=== PATIENT | female | born 1985 | race Caucasian/White ===

== ENCOUNTER 2017-06-01 09:40 | Inpatient (IN) ==
[2017-06-06] MEDS ORDERED: MAG-AL + SIM ORAL LIQUID 30ml PO PRN (20:40)
[2017-06-06] MEDS ORDERED: CARBOPROST 250 MCG/ML INJECTION IM PRN (20:40)
[2017-06-06] MEDS ORDERED: LR 1,000 ML IV PRN (20:40)
[2017-06-06] MEDS ORDERED: CALCIUM CARBONATE Chewable 500mg TABLET PO PRN (20:40)
[2017-06-06] MEDS ORDERED: METHYLERGONOVINE 0.2 MG/ML INJECTION IM PRN (20:40)
[2017-06-06] MEDS ORDERED: LIDOCAINE 1% (10mg/ml) 2mL INJ PF SDV ID PRN (20:40)
[2017-06-06] MEDS ORDERED: ACETAMINOPHEN 500 MG TABLET PO PRN (20:40)
--- OUTSIDE RECORDS SUMMARY | 2017-06-06 20:41 | External Medical Summary | Continuity of Care Document ---
:1985 Author Organization [facility] Address [address] [place], [place] [id number] Phone Care Team Providers Name Role Phone Yrn Bond MD Unavailable Unavailable Allergies, Adverse Reactions, Alerts Substance Reaction Severity Status amoxicillin Rash Unknown Active Medications Medication Instructions Dosage Effective Dates Status Comments (start - stop) FOLIC ACID - Active (unknown strength) Generic Order - Active (unknown strength) Vitamin take 1 tablet by Not Available - Active tablet oral route every day ANTACID (unknown take 2 tablet by - Active strength) oral route as needed or as directed. Not to exceed 24 tablets in 24hrs Probiotic 10 - Active billion cell capsule Enzymatic - Active Digestant tablet Problems Condition Effective Dates (start - stop) Clinical Status Follow-Up, Routine - Maternal care for oth - abnormality and damage, unsp Encounter for suprvsn of normal - , third trimester 36 weeks gestation of - Encounter for suprvsn of normal - , first trimester 10 weeks gestation of - Encounter for suprvsn of normal - , second trimester 14 weeks gestation of - Encounter for suprvsn of normal - , second trimester 20 weeks gestation of - Maternal care for oth - abnormality and damage, unsp Abnormal glucose complicating - Encounter for suprvsn of normal - , third trimester 38 weeks gestation of - Maternal care for oth - abnormality and damage, unsp Abnormal glucose complicating - 36 weeks gestation of - Abnormal glucose complicating - Abnormal glucose complicating - Encounter for suprvsn of normal - , third trimester 33 weeks gestation of - Encounter for suprvsn of normal - , second trimester 27 weeks gestation of - Encounter for suprvsn of normal - , second trimester 20 weeks gestation of - Encounter for suprvsn of normal - , second trimester 24 weeks gestation of - Encounter for suprvsn of normal - , third trimester 31 weeks gestation of - Encounter for suprvsn of normal - , third trimester 37 weeks gestation of - Active Procedures Procedure Date OB Visit No Charge - FACILITY OPERATIONS MANAGER Cult, pathgnc orgnsm, screen Results Test Name Date and Time Measure Units Reference Range Abnormal Flag Comments Panel Description: CULTURE, GROUP B STREP WITH SUSCEPTIBILITY CULTURE, GROUP B SEE NOTE CULTURE, GROUP B STREP WITH STREP WITH 09:54:00 SUSCEPTIBILITY MICRO NUMBER: SUSCEPTIBILITY [id number] TEST STATUS: FINAL SPECIMEN SOURCE: VAGINAL/ANORECTAL SPECIMEN QUALITY: ADEQUATE RESULT: No group B Streptococcus isolatedREPORT COMMENT:FASTING:UNKNOWNTest performed at [facility] [id number] [place] [address]Qdltgolb: ERMA MEJIA DO,MPH Advance Directives Directive Yes / No Effective Date File Name Unknown Encounters Encounter Practice Location Reason(s) Diagnoses Date Provider Care Team Description For Visit [facility] Maternal care for Vazquez Referring In Womens oth 9201 Elizabeth. Provider: Health PA, abnormality and 8 [address] damage, Medical Varun B, 1522, unspAbnormal Center [address], glucose Dr, [facility], complicating 120, Center, [id number], pregnancyEncounte [place]her [place], [place], [address]. tel: normal , [phone] tel: third [id number] , [place]. [id number] weeks gestation tel: of [phone] Katelin Obando Encounter for Fabian-2 Vazquez Referring In Womens suprvsn of normal 2-201 Elizabeth. Provider: Health MARGAUX, , third 8 700 Yrn [address] [id number] weeks [facility], 1522, gestation of [place] [address], , [facility], 120, Center, [id number], [place], [place], [address]. tel: tel: , [place]. [phone] tel: [phone] Katelin Obando Maternal care for Fabian-1 Vazquez Referring In Womens oth 5-201 Elizabeth. Provider: Roel DAMICO, abnormality and 8 [address] damage, [facility], 1522, unspEncounter for Center [address], [facility] normal , [facility], , third 120, Center, [id number], [id number] weeks [place], [place], [address]. tel: [phone] tel: , [place]. [id number] tel: [phone] Katelin Obando Maternal care for Fabian-1 Vazquez Referring In Womens Ultrasound oth 5-201 Elizabeth. Provider: Roel DAMICO, abnormality and 8 700 Yrn [address] damage, [facility], 1522, unspAbnormal Center [address] [place] [address], glucose , [facility], complicating 120, Center, [id number], [id number] weeks [place], [place], [address]. tel: [phone] tel: , [place]. 5359494 tel: [phone] Katelin Obando Abnormal glucose Dec-2 Vazquez Referring In Womens complicating 7-201 Elizabeth. Provider: Roel DAMICO, pregnancyEncounte 7 [address] r for suprvsn of [facility], 1522, normal , Center [address], third [email or web address] , [facility], weeks gestation 120, Center, [id number], of Topher [place], [place], [address]. tel:[phone] tel: , . 7857944 tel: [phone] Katelin Obando Encounter for Dec-1 Vazquez Referring In Womens suprvsn of normal 2-201 Elizabeth. Provider: Health MARGAUX, , third 7 700 Yrn [address] [email or web address] weeks [facility], 1522, gestation of Center [address] [place] [address], , [facility], 120, Center, , Topher [place], [place], [address]. tel:[phone] tel: , . [id number] tel: [phone] Katelin Obando Abnormal glucose Nov-2 Vazquez Referring In Womens complicating 2-201 Elizabeth. Provider: Health [place], 7 700 Yrn PO Box [facility], 1522, Center [facility] [place], Dr [facility], 120, Center, , Topher [place], [place], [address]. tel: tel: , . [phone] tel: [phone] Katelin Obando Encounter for Nov-1 Vazquez Referring In Womens suprvsn of normal 7-201 Elizabeth. Provider: Health MARGAUX, , second 7 700 Yrn [address] [email or web address] weeks [facility], 1522, gestation of Center [address] [place] [address], Dr [facility], 120, Center, [id number], Topher [place], [place], [address]. tel:[phone] tel: , [place]. [id number] tel: [phone] Katelin Obando Encounter for Oct-2 Vazquez Referring In Womens suprvsn of normal 4-201 Elizabeth. Provider: Health MARGAUX, , second 7 700 Yrn [address] [email or web address] weeks Medical [facility], 1522, gestation of Center [address] [place] [address], Dr [facility], 120, Center, , [place]her [place], [place], [address]. tel:[phone] tel: , . 0854462 tel: [phone] Katelin Obando Encounter for Sep-2 Vazquez Referring In Womens suprvsn of normal 5-201 Elizabeth. Provider: Health MARGAUX, , second 7 700 Yrn [address] Box [email or web address] weeks Medical [facility], 1522, gestation of Center [address], , [facility], 120, [place], [id number], Topher [place], [place], [address]. tel:[phone] tel: , . [phone] tel: [phone] Ktaelin Obando Encounter for Sep-2 Vazquez Referring In Womens Ultrasound suprvsn of normal 5-201 Elizabeth. Provider: Roel DAMICO, , second 7 700 Yrn [address] [email or web address] weeks Medical [facility], 1522, gestation of Center [address] [place] [address], , [facility], 120, [place], , oTpher [place], [place], [address]. tel:[phone] tel: , [place]. 6785493 tel: [phone] Katelin Obando Encounter for Aug-1 Vazquez Referring In Womens suprvsn of normal 6-201 Elizabeth. Provider: Roel DAMICO, , second 7 700 Yrn [address] Box [id number] weeks Medical [facility], 1522, gestation of Center [address] [place] [address], , [facility], 120, [place], , Topher [place], [place], [address]. tel:[phone] tel: , US. 1487875 tel: [phone] Katelin Obando Encounter for Rosales-1 Vazquez Referring In Womens suprvsn of normal 9-201 Elizabeth. Provider: Roel DAMICO, , first 7 700 Yrn [address] [email or web address] weeks Medical Varun B, 1522, gestation of Center [address], , [facility], 120, [place], , Topher [place], [place], [address]. tel:[phone] tel: , . 8450028 tel: [phone] [facility] Jan-2 Vazquez Referring In Womens Follow-Up, 7- Elizabeth. Provider: Health MARGAUX, Routine 5 700 Yrn [facility] Medical Varun B, 1522, Center [address] [place], [facility] [place], 120, [place], [id number], [place], [place], [address]. tel: [phone] tel: , . 9887706 tel: [phone] Katelin Obando Nov- Vazquez Referring In Womens 2-201 Elizabeth. Provider: Health MARGAUX, 5 700 Elizabeth PO Box Medical Vazquez L, 1522, Center [address] [place], [facility], 120, [place] [id number], [place] [address], [place], [place], tel: [phone] [place], , . [id number]. tel: tel: [phone] [facility] Oct-2 Vzaquez In Womens 9-201 Elizabeth. Health MARGAUX, 5 700 [facility] Medical 1522, [place] Dr [place], [facility], 120, [id number], [facility], tel:[phone] , . tel: [phone] Associates [facility] In Womens 1-201 [place]. Health MARGAUX, 3 700 [facility] 1522, [place] Dr [place], [facility], 120, [id number], [place], [place], tel:[phone] , [place]. tel: [phone] Family History Family Member Diagnosis Age At Onset No family history of Osteoporosis No family history of Breast Cancer Maternal Grandfather Cardiovascular Disease No family history of Lung Disease No family history of Kidney Problems No family history of Epilepsy Paternal Grandfather Stroke No family history of Hypertension Paternal Grandmother Cancer, lung No family history of Ovarian Cancer No family history of Uterine Cancer No family history of Colon Cancer No family history of Diabetes No family history of Thyroid Disorder Immunizations Vaccine Date Status Comments Tdap completed Source: School Record Tdap completed Source: New Immunization Record Payers Payer name Insurance type Covered democrat ID Authorization(s) [facility] [id number] [facility] [place] [id number] [facility] [place] [id number] Social History Type Description Quantity Date Captured Alcohol Use Details No Caffeine Use Details Unknown Tobacco Use Status Unknown Smoking Status Never smoker Vital Signs Date / Height Weight BMI Pulse Blood Temperature Respiratory Body Head BMI Time: Rate Pressure Rate Surface Circumference percentile Area 157.90 29.8 107/2018 lbs 3 mm[Hg] 9:17 kg/m AM eter (2) Chief Complaint And Reason For Visit Unknown Chief Complaint And Reason For Visit Reason For Referral Reason For Referral Unknown Plan Of Care Date Type Action Status Appointment Jojo Loza BOOKED Appointment Jojo Loza BOOKED Future Order: Radiology Order Ultrasound OB Follow-up (93069) Ordered Future Order: Radiology Order Complete OB Ultrasound > 14 Ordered Weeks (08508) Date Type Problem Goal Intervention Status Start Date Unknown. History Of Present Illness Encounter Date Complaint History Of Present Illness This patient has no known history of present illness Functional Status Encounter Date Functional Assessment Cognitive Assessment Unknown Medications Administered Medication Instructions Dosage Effective Dates (start - stop) Status Comments Drug Treatment Unknown Instructions Date Instruction Additional Information HIV and other routine tests risk factors identified by history anticipated course of care nutrition and weight gain counseling, special diet toxoplasmosis precautions (cats / raw meat) sexual activity exercise indications for ultrasound influenza vaccine environmental / work hazards travel use of any medications (including supplements, vitamins, herbs, OTC drugs) domestic violence seat belt use childbirth classes / hospital facilities hospital registration genetic testing new ob handbook Zika virus assessment & precautions
--- OUTSIDE RECORDS SUMMARY | 2017-06-06 20:41 | External Medical Summary | Continuity of Care Document ---
:1986 Author Organization [facility] Address [address] [place], [place] [id number] Phone Care Team Providers Name Role Phone [...] Probiotic 10 - Active billion cell capsule Problems Condition Effective Dates (start - stop) Clinical Status Follow-Up, Routine - Encounter for suprvsn of normal - , second trimester 14 weeks gestation of - Encounter for suprvsn of normal - , first trimester 10 weeks gestation of - Active Procedures Procedure Date OB Visit No Charge Results Test Name Date and Time Measure Units Reference Range Abnormal Flag Comments Unknown Advance Directives Directive Yes / No Effective Date File Name Unknown Encounters Encounter Practice Location Reason(s) Diagnoses Date Provider Care Team Description For Visit [facility] Encounter Vazquez Referring In [facility] for suprvsn -2016 Elizabeth. Provider: Roel DAMICO, of normal [address], , Medical [place], [facility] Center Vidhya Mcne[facility] Medical [id number], [id number] Price 120, Center, [place] weeks [place], tel:[phone] [place], [address]. [id number], tel:+316 [place]. 977046 tel:[phone] Katelin Obando Encounter Vazquez Referring In Womens for suprvsn -2016 Elizabeth. Provider: Roel DAMICO, of normal [address], , [place], first Center , 720 Medical [id number], [email or web address] Price 120, Center, weeks [place], tel:[phone] [place], [address]. [id number], tel:+316 [place]. [address] tel:[phone] Katelin Obando Vazquez Referring In Womens Follow-Up, -2014 Elizabeth. Provider: Roel DAMICO, Routine [address], [place], [place] , 720 [facility] [id number], Price 120, Center, [place], tel:[phone] [place], [address]. [id number], tel:+[phone] . [phone] tel:[phone] Katelin Obando Vazquez Referring In Womens -2014 Elizabeth. Provider: Roel DAMICO, 700 Elizabeth [address], Medical Vaz[place], [place], [place] , [address] [place] [id number], Price [address], [address] Dr [place], Price 120, tel:[phone] [place], [id number], [id number]. [place]. tel: tel:[phone] Katelin Obando Vazquez In Womens -2014 Elizabeth. Health MARGAUX, 700 [address], [place], [place], [place] , [id number], Price 120, [place], tel:[phone] [place], [id number], [place]. tel:[phone] Katelin Allen In Womens -2012 [place]. Health AMRGAUX, 700 [address], Medical [place], [place], [place] , [id number], [address], [place], tel:[phone] [place], [id number], [place]. tel:[phone] Family History Family Member Diagnosis Age At [...] Vaccine Date Status Comments Tdap completed Source: New Immunization Record Payers Payer name Insurance type Covered democrat ID Authorization(s) [facility] [id number] [facility] [id number] [facility] [id number] Social History Type Description Quantity Date Captured Alcohol Use Details No Caffeine Use Details Unknown Tobacco Use Status Unknown Smoking Status Never smoker Vital Signs Date / Height Weight BMI Pulse Blood Temperature Respiratory Body Head BMI Time: Rate Pressure Rate Surface Circumference percentile Area Unknown Chief Complaint And Reason For Visit Unknown Chief Complaint And Reason For Visit Reason For Referral Reason For Referral Unknown Plan Of Care Date Type Action Status Appointment Jojo Loza BOOKED Appointment Jojo Loza BOOKED Date Type Problem Goal Intervention Status Start [...]
--- OUTSIDE RECORDS SUMMARY | 2017-06-06 20:41 | External Medical Summary | Continuity of Care Document ---
:1986 Author Organization [facility] Address [address] [place], [place] [phone] Phone Care Team Providers Name Role Phone Yrn Bond MD Unavailable Unavailable Allergies, Adverse Reactions, Alerts Substance Reaction Severity Status amoxicillin Rash Unknown Active Medications Medication Instructions Dosage Effective Dates Status Comments (start - stop) Generic Order - Active (unknown strength) Probiotic 10 - Active billion cell capsule Vitamin take 1 tablet by Not Available - Active tablet oral route every day ANTACID (unknown take 2 tablet by - Active strength) oral route as needed or as directed. Not to exceed 24 tablets in 24hrs Problems Condition Effective Dates (start - stop) Clinical Status Follow-Up, Routine - Encounter for suprvsn of normal - , first trimester 10 weeks gestation of - Active Procedures Procedure Date Initial OB Visit No Charge - FORMING TUBE SELECTOR Infct antign, chlamydia trac, ampl Neisseria Gonorrhoeae, Amplification Urine Culture OB Panel With An HIV Venpnctr fngr/heel/ear stick routne Cult, bactr, ident isolate, urine Results Test Name Date and Time Measure Units Reference Range Abnormal Flag Comments Panel Description: OBSTETRIC PANEL WHITE BLOOD CELL 7.2 Thousand/uL 3.8-10.8 N COUNT 14:03:00 RED BLOOD CELL 3.76 Million/uL 3.80-5.10 L COUNT 14:03:00 HEMOGLOBIN 12.2 g/dL 11.7-15.5 N 14:03:00 HEMATOCRIT 34.9 % 35.0-45.0 L 14:03:00 MCV 92.8 fL 80.0-100.0 N 14:03:00 MCH 32.4 pg 27.0-33.0 N 14:03:00 MCHC 35.0 g/dL 32.0-36.0 N 14:03:00 RDW 12.0 % 11.0-15.0 N 14:03:00 PLATELET COUNT 213 Thousand/uL 140-400 N 14:03:00 MPV 10.2 fL 7.5-12.5 N 14:03:00 ABSOLUTE 4745 cells/uL 3545-6355 N NEUTROPHILS 14:03:00 ABSOLUTE 1764 cells/uL 850-3900 N LYMPHOCYTES 14:03:00 ABSOLUTE 511 cells/uL 200-950 N MONOCYTES 14:03:00 ABSOLUTE 151 cells/uL 15-500 N EOSINOPHILS 14:03:00 ABSOLUTE 29 cells/uL 0-200 N BASOPHILS 14:03:00 NEUTROPHILS 65.9 % N 14:03:00 LYMPHOCYTES 24.5 % N 14:03:00 MONOCYTES 7.1 % N 14:03:00 EOSINOPHILS 2.1 % N 14:03:00 BASOPHILS 0.4 % N 14:03:00 ANTIBODY SCREEN, NO ANTIBODIES N RBC W/REFL ID, 14:03:00 DETECTED Reference range TITER AND AG No antibodies detected This assay is a screening test for the detection of red blood cell antibodies. The test is not to be used for pretransfusion screening or for the medical management of an alloimmunized . ABO GROUP B 14:03:00 RH TYPE RH(D) 14:03:00 POSITIVE RPR (DX) W/REFL NON-REACTIVE NON-REACTIV N TITER AND 14:03:00 E CONFIRMATORY TESTING HEPATITIS B NON-REACTIVE NON-REACTIV N SURFACE ANTIGEN 14:03:00 E RUBELLA ANTIBODY 1.00 index N Index (IGG) 14:03:00 Interpretation ----- <0.90 Not consistent with Immunity 0.90-0.99 Equivocal > or=1.00 Consistent with Immunity The presence of rubella IgG antibody suggests immunization or past or current infection withrubella virus.Test performed at Before the [facility] [place] [address]Ygsbisw r: ERMA MEJIA DO,MPH Panel Description: HIV 1/2 ANTIGEN/ANTIBODY,FOURTH GENERATION W/RFL HIV NON-REACTIVE NON-REACTIVE N HIV-1 antigen and HIV-1/HIV- 2 antibodies were AG/AB, 14:03:00 notdetected. There is no laboratory evidence of 4TH GEN HIVinfection. PLEASE NOTE: This information has been disclosed toyou from records whose confidentiality may beprotected by state law. If your state requires suchprotection, then the state law prohibits you frommaking any further disclosure of the informationwithout the specific written consent of the personto whom it pertains, or as otherwise permitted by law.A general authorization for the release of medical orother information is NOT sufficient for this purpose. For additional information please refer tohttp://education.[employer]/faq/OVT798(This link is being provided for informational/educational purposes only.) The performance of this assay has not been clinicallyvalidated in patients less than 2 years old. Test performed at [facility] [place] [address]Lhgntmii: ERMA MEJIA DO,MPH Panel Description: Bacteria identified in Urine by Culture CULTURE, URINE, 14:01:00 SEE NOTE CULTURE, URINE, ROUTINE ROUTINE MICRO NUMBER: [id number] TEST STATUS: FINAL SPECIMEN SOURCE: URINE, CLEAN CATCH SPECIMEN QUALITY: ADEQUATE RESULT: Multiple organisms present, each less than 10,000 CFU/mL. These organisms, commonly found on external and internal genitalia, are considered to be colonizers. No further testing performed.REPORT COMMENT:RTest performed at Before the Call [facility] [place] [address]Pnvwwdre: ERMA MEJIA DO,MPH Panel Description: CHLAMYDIA/N. GONORRHOEAE RNA, TMA CHLAMYDIA NOT DETECTED NOT DETECTED N TRACHOMATIS RNA, 14:07:00 TMA NEISSERIA NOT DETECTED NOT DETECTED N GONORRHOEAE RNA, 14:07:00 TMA [id number] SEE NOTE This test was 14:07:00 performed using the APTIMA COMBO2 Assay([employer] The analytical performance characteristics of this assay, when used to test SurePath specimens havebeen determined by [employer]. Test performed at [facility] [id number] [place] [address]Svsehblf: ERMA MEJIA DO,MPH Panel Description: Pap Smear With HPV Reflex If ASCUS Document Advance Directives Directive Yes / No Effective Date File Name Unknown Encounters Encounter Practice Location Reason(s) Diagnoses Date Provider Care Team Description For Visit Members Katelin Obando Encounter Vazquez Referring In Womens for suprvsn -2016 Elizabeth. Provider: Roel DAMICO, of normal [address], , Medical Varun [place], [place], first Center , [address] [place] [id number], [address], [place], weeks [place], tel:[phone] [place], [address]. [id number], tel:+[phone] . 362028 tel:[phone] Katelin Obando Vazquez Referring In Womens Follow-Up, -2014 Elizabeth. Provider: Roel DAMICO, Routine [address], Medical Varun [place], [place], [place] , [address] [id number], [address], Center, [place], tel:[phone] [place], [address]. [id number], tel:[phone] . 394143 tel:[phone] Katelin Obando Vazquez Referring In Womens -2014 Elizabeth. Provider: Roel DAMICO, 700 Elizabeth [address], Medical [place], [place] , 700 Medical [id number], [address], Center [place] [address] 120, tel:[phone] [place], [place], [id number], [id number]. [place]. tel: tel:[phone] Associates [place] Vazquez In Womens Elizabeth. [facility], 700 [address], [place], [place], [place] , [id number], [address], [place], tel:+[phone] [place], [id number], [place]. tel:[phone] Associates [facility] [place]. [facility], [address], [place], [place], [place] , [id number], [address], [place], tel:[phone] [place], [id number], [place]. tel:[phone] Family History Family Member Diagnosis Age At [...] Record Payers Payer name Insurance type Covered constitution party ID Authorization(s) [facility] [id number] [facility] [id number] [facility] [id number] Social History Type Description Quantity Date Captured Alcohol Use Details No Caffeine Use Details chocolate daily per day Tobacco Use Status Never smoked tobacco Smoking Status Never smoker Non-Smoking Tobacco Use : No Details Available : No Details Available Details Vital Signs Date / Height Weight BMI Pulse Blood Temperature Respiratory Body Head BMI Time: Rate Pressure Rate Surface Circumference percentile Area 132.90 25.1 lbs 1 mm[Hg] 1:19 kg/m PM eter (2) 132.90 26.4 lbs 1 mm[Hg] 1:19 kg/m PM eter (2) Chief Complaint And Reason For Visit Unknown Chief Complaint And Reason For Visit Reason For Referral Reason For Referral Unknown Plan Of Care Date Type Action Status Appointment Jojo Loza BOOKED Date Type Problem [...]
--- OUTSIDE RECORDS SUMMARY | 2017-06-06 20:41 | External Medical Summary | Continuity of Care Document ---
:1985 Author Organization [facility] Address [address] [place], [place] [id number] Phone Care Team Providers Name Role Phone [...] third trimester 37 weeks gestation of - Encounter for suprvsn [...] suprvsn of normal - , third trimester 39 weeks gestation of - Maternal care for oth - abnormality and damage, unsp Abnormal glucose complicating - Encounter for suprvsn of normal - , third trimester 38 weeks gestation of - Maternal care for oth - abnormality and damage, unsp Encounter for suprvsn of normal - , third trimester 36 weeks gestation of - Maternal care for [...] third trimester 31 weeks gestation of - Active Procedures Procedure Date OB Visit No 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 Provider: Health PA, abnormality and 8 700 Yrn [address] damage, Medical [facility], 1522, unspAbnormal Center [address] [place], glucose , [facility], complicating 120, Center, [id number], pregnancyEncounte Topher [place], [place], [address]. tel:+ normal , [phone] tel:+ [phone] third [id number] , [place]. [id number] weeks gestation tel: of [phone] Katelin [place]o Maternal care for Vazquez Referring In Womens oth 9-201 Elizabeth. Provider: Roel DAMICO, abnormality and 8 700 Yrn [address] Box damage, Medical Varun B, 1522, unspAbnormal Center [address] [place], glucose Dr [facility], complicating 120, Center, [id number], pregnancyEncounte Topher [place], [place], [address]. tel: normal , [phone] tel: third [email or web address] , [place]. [id number] weeks gestation tel: of [phone] Katelin [place] Encounter for Apr- Vazquez Referring In Womens suprvsn of normal 2-201 Elizabeth. Provider: Roel DAMICO, , third 8 700 Yrn [address] Box [email or web address] weeks Medical Varun B, 1522, gestation of Center [address] [place], , [facility], 120, Center, [id number], [place], [place], [address]. tel: tel: , [place]. [id number] tel: [phone] Katelin [place]o Maternal care for Apr- Vazquez Referring In Womens ot 5-201 Elizabeth. Provider: Roel DAMICO, abnormality and 8 700 Yrn [address] Box damage, Medical Varun B, 1522, unspEncounter for Center [address] [place], suprvsn of normal Dr [facility], , third 120, Center, [id number], [email or web address] weeks Topher [facility] [place], [address]. tel: [phone] tel: , [place]. [id number] tel: [phone] Katelin [place]o Maternal care for Apr- Vazquez Referring In Womens Ultrasound oth 5-201 Elizabeth. Provider: Roel DAMICO, abnormality and 8 700 Yrn PO Box damage, Medical Varun B, 1522, unspAbnormal Center [address] [place], glucose Dr [facility], complicating 120, Center, [id number], [email or web address] weeks [place], [place], [address]. tel: [phone] tel: , [place]. [id number] tel: [phone] Katelin [place]o Abnormal glucose Dec-2 Vazquez Referring In Womens complicating 7-201 Elizabeth. Provider: Roel DAMICO, pregnancyEncounte 7 700 Yrn PO Box r for suprvsn of [facility], 1522, normal , Center [address] [place] [address], third , [facility], weeks gestation 120, Center, [id number], of Topher [place], [place], [address]. tel:[phone] tel: , [place]. [id number] tel: [phone] Katelin [place]o Encounter for Dec-1 Vazquez Referring In Womens suprvsn of normal 2-201 Elizabeth. Provider: Roel DAMICO, , third 7 700 Yrn PO Box [email or web address] weeks [facility], 1522, gestation of Center [address] [place] [address], , [facility], 120, Center, [id number], Topher [place], [place], [address]. tel:[phone] tel: , [place]. [id number] tel: [phone] Katelin [place]o Abnormal glucose Nov-2 Vazquez Referring In Womens complicating 2-201 Elizabeth. Provider: Roel DAMICO, 7 700 Yrn PO Box [facility], 1522, Center [address] [place], Dr [facility], 120, Center, [id number], Topher [place], [place], [address]. tel:[phone] tel: , [place]. [id number] tel: [phone] Katelin [place]bando Encounter for Nov-1 Vazquez Referring In Womens suprvsn of normal 7-201 Elizabeth. Provider: Roel DAMICO, , second 7 700 Yrn PO Box [email or web address] weeks [facility], 1522, gestation of Center [address] [place] [address], Dr [facility], 120, Center, [id number], Topher [place], [place], [address]. tel:[phone] tel: , . [id number] tel: [phone] Katelin [place]o Encounter for Oct-2 Vazquez Referring In Womens suprvsn of normal 4-201 Elizabeth. Provider: Health PA, , second 7 700 Yrn [address] Box [email or web address] weeks Medical [facility], 1522, gestation of Center [address] [place], , [facility], 120, Center, [id number], Topher [place], [place], [address]. tel:[phone] tel:+ , [place]. [id number] tel: [phone] Katelin [place]o Encounter for Sep-2 Vazquez Referring In Womens suprvsn of normal 5-201 Elizabeth. Provider: Health MARGAUX, , second 7 700 Yrn PO Box [email or web address] weeks Medical [facility], 1522, gestation of Center [address] [place] [address], , [facility], 120, [place], , Topher [place], [place], [address]. tel:[phone] tel: , [place]. [id number] tel: [phone] Katelin [place]o Encounter for Sep-2 Vazquez Referring In Womens Ultrasound suprvsn of normal 5-201 Elizabeth. Provider: Roel DAMICO, , second 7 700 Yrn PO Box [email or web address] weeks Medical [facility], 1522, gestation of Center [address] [place] [address], , [facility], 120, [place], , Topher [place], [place], [address]. tel:[phone] tel: , [place]. [id number] tel: [phone] Katelin [place]o Encounter for Aug-1 Vazquez Referring In Womens suprvsn of normal 6-201 Elizabeth. Provider: Health MARGAUX, , second 7 700 Yrn PO Box [email or web address] weeks Medical [facility], 1522, gestation of Center [address] [place] [address], , [facility], 120, Center, , Topher [place], [place], [address]. tel:[phone] tel: , . [id number] tel: [phone] Katelin Obando Encounter for Rosales-1 Vazquez Referring In Womens suprvsn of normal 9-201 Elizabeth. Provider: Roel DAMICO, , first 7 700 Yrn Kelley [email or web address] weeks Medical [facility], 1522, gestation of Center [facility] [place], , [facility], 120, Center, [id number], [place], [place], [address]. tel: [phone] tel: , [place]. 9010194 tel: [phone] Katelin Obando Jan-2 Vazquez Referring In Womens Follow-Up, 7 Elizabeth. Provider: Roel DAMICO, Routine 5 700 Yrn Kelley [facility], 1522, Center [facility] Dr [place], [facility], 120, [place], [id number], Topher [place], [place], [address]. tel:[phone] tel: , [place]. 9016541 tel: [phone] Katelin Obando Nov- Vazquez Referring In Womens 2-201 Elizabeth. Provider: Roel DAMICO, 5 700 Elizabeth INOCENCIA Box Medical [facility], 1522, Center [facility] Dr [place], [facility], 120, [place] [id number], [place] [address], [facility], [place], tel:[phone] [place], , [place]. [id number]. tel: tel: [phone] Katelin Obando Oct-2 Vazquez In Womens 9- Elizabeth. Roel DAMICO, 5 700 [facility] 1522, [place] Dr [place], [facility] [place], 120, [id number], [place], [place], tel:[phone] , [place]. tel: [phone] Associates May- Alejandro In Womens 1-201 [place]. Roel DAMICO, 3 700 [facility] 1522, [place] Dr [place], [facility] [place], 120, [id number], [facility] [place], tel:[phone] , [place]. tel: [phone] Family History Family Member Diagnosis Age At [...] Record Payers Payer name Insurance type Covered green party ID Authorization(s) [facility] [id number] [facility] [id number] [facility] [id number] Social History Type Description Quantity Date Captured Alcohol Use Details No Caffeine Use Details chocolate daily per day Tobacco Use Status Never smoked tobacco Smoking Status Never smoker Vital Signs Date / Height Weight BMI Pulse Blood Temperature Respiratory Body Head BMI Time: Rate Pressure Rate Surface Circumference percentile Area Unknown Chief Complaint And Reason For Visit Unknown Chief Complaint And Reason For Visit Reason For Referral Reason For Referral Unknown Plan Of Care Date Type Action Status Future Order: Radiology Order Ultrasound OB Follow-up ([id number]) Ordered Future Order: Radiology Order Complete OB Ultrasound > 14 Ordered Weeks ([id number]) Date Type Problem Goal Intervention Status Start [...]
--- OUTSIDE RECORDS SUMMARY | 2017-06-06 20:41 | External Medical Summary | Continuity of Care Document ---
:1985 Author Organization [facility] Address [address] [place], [place] [phone] Phone Care Team Providers Name Role Phone [...] second trimester 20 weeks gestation of - Abnormal glucose complicating - Encounter for suprvsn of normal - , second trimester 20 weeks gestation of - Encounter for suprvsn of normal - , second trimester 24 weeks gestation of - Active Procedures Procedure Date OB Visit No Charge Glucose test Hemoglobin count, colorimetric Hematocrit blood count Venpnctr fngr/heel/ear stick routne Results Test Name Date and Time Measure Units Reference Range Abnormal Flag Comments Panel Description: Glucose [Mass/volume] in Serum or Plasma --1 hour post 50 g glucose PO GLUCOSE, 143 mg/dL <140 H One hour value of > GESTATIONAL SCREEN 15:11:00 pw=893 mg/dL indicatesthe (50G)-140 CUTOFF need for a diagnostic 75 g dose 2-hour or100 g dose 3-hour oral glucose tolerance test;patient fasting is required.[place] [address]Director: ERMA MEJIA DO,MPH Panel Description: HEMOGLOBIN + HEMATOCRIT HEMOGLOBIN 15:11:00 11.0 g/dL 11.7-15.5 L HEMATOCRIT 15:11:00 31.5 % 35.0-45.0 L REPORT COMMENT:FASTING :NOTest performed at [facility] [address] [id number]: ERMA MEJIA DO,MPH Advance Directives Directive Yes / No Effective Date File Name Unknown Encounters Encounter Practice Location Reason(s) Diagnoses Date Provider Care Team Description For Visit Members Katelin [place]o Abnormal Nov-2 Vazquez Referring In Women glucose 2-201 Elizabeth. Provider: Roel DAMICO, complicating 7 [address], [facility] [place] [place], [place] [address] [id number], [facility] [place] 120, Center, tel:[phone] Topher [place], [address] [place] [address], [address]. [id number] tel: , [place]. [id number] tel: [phone] Katelin [place]o Encounter for Feb- Vazquez Referring In Womens suprvsn of 7-201 Elizabeth. Provider: Health PA, normal 7 [address], , Medical Varun [place], [place], [facility] Center 720 [id number], [email or web address] Dr [facility] weeks 120, [place], tel:+21 gestation of Topher [place], [address] [place], [address]. [id number] tel: , [place]. 0284657 tel: [phone] Katelin [place]o Encounter for Oct-2 Vazquez Referring In Womens suprvsn of Elizabeth. Provider: Roel DAMICO normal 7 [address], , Medical [facility], [place], [place], second Center 720 [id number], [facility] [place] weeks 120, Center, tel:+ gestation of Topher [place], [address] [place], [address]. [id number] tel:+ , [place]. [id number] tel: [phone] Katelin Obando Encounter for Sep-2 Vazquez Referring In Womens suprvsn of - Elizabeth. Provider: Roel DAMICO normal 7 [address], , Medical [facility], [place], [place], second Center 720 [id number], [email or web address] [facility] [place] weeks 120, Center, tel:+ gestation of Topher [place], [address] [place], [address]. [id number] tel:+ , [place]. [id number] tel: [phone] Katelin [place]o Encounter for Sep-2 Vazquez Referring In Womens Ultrasound suprvsn of - Elizabeth. Provider: Roel DAMICO normal 7 [address], , Medical [facility], [place], [place], second Center 720 [id number], [email or web address] [facility] [place] weeks 120, Center, tel:+ gestation of Topher [place], [address] [place], [address]. [id number] tel:+ , [place]. [id number] tel: [phone] Katelin O[place]o Encounter for Aug-1 Vazquez Referring In Womens suprvsn of 6- Elizabeth. Provider: Roel DAMICO normal 7 [address], , Medical [facility], [place], [place], second Center 720 [id number], [email or web address] [facility] [place] weeks 120, Center, tel:+ gestation of Topher [place], [address] [place], [address]. [id number] tel: , US. [id number] tel: [phone] Katelin Obando Encounter for Oct-1 Vazquez Referring In Womens suprvsn of - Elizabeth. Provider: Roel DAMICO, normal 7 [address], , Medical Varun , [place], [place], first Center 720 [id number], [email or web address] , [facility] weeks 120, Center, tel:21 gestation of Topher [place], [address] [place], [address]. [id number] tel: , [place]. [id number] tel: [phone] Katelin Obando Oct-2 Vazquez Referring In Womens Follow-Up, Elizabeth. Provider: Health MARGAUX, Routine 5 [address], Medical Varun , [place], [place], Center [address] [id number], Dr [facility] 120, Center, tel: Topher [place], [address] [place], [address]. [id number] tel: , [place]. [id number] tel: [phone] Katelin Obando Aug-1 Vazquez Referring In Womens 2-201 Elizabeth. Provider: Roel DAMICO, 5 700 Elizabeth [address], Medical Vazquez L [place], Center 700 [id number], Dr [facility] 120, [place] tel: [place]her [place] [address], [address] Topher [place], [id number] [place], , [place]. [id number]. tel: tel: [phone] Katelin [place]bando Oct-2 Vazquez In Womens 9- Elizabeth. Health MARGAUX, 5 700 [address], [place], [place], [place] [id number], Dr [facility] 120, tel: Topher [address] [place] [address], [id number] , [place]. tel: [phone] Katelin May- Alejandro In Womens -201 [place]. Health MARGAUX, 3 700 [address], [place], Center [id number], , [facility] 120, tel:[phone] [facility]her[facility] license of [facility] [place], [id number] , [place]. tel: [phone] Family History Family Member Diagnosis Age At [...] Record Payers Payer name Insurance type Covered libertarian ID Authorization(s) [facility] [id number] [facility] [id number] [facility] [id number] Social History Type Description Quantity Date Captured Alcohol Use Details No Caffeine Use Details Unknown Tobacco Use Status Unknown Smoking Status Never smoker Vital Signs Date / Height Weight BMI Pulse Blood Temperature Respiratory Body Head BMI Time: Rate Pressure Rate Surface Circumference percentile Area 152.70 28.8 104/59 lbs 5 mm[Hg] 2:31 kg/m PM eter (2) 282 3 2:27 kg/m PM eter (2) Chief Complaint And Reason For Visit Unknown Chief Complaint And Reason For Visit Reason For Referral Reason For Referral Unknown Plan Of Care Date Type Action Status Appointment Jojo Loza BOOKED Future Order: Radiology Order Complete OB Ultrasound > 14 Ordered Weeks ([id number]) Date Type Problem Goal Intervention Status Start [...]
--- OUTSIDE RECORDS SUMMARY | 2017-06-06 20:41 | External Medical Summary | Continuity of Care Document ---
:1986 Author Organization [facility] Address [address] [place], [place] [phone] Phone Care Team Providers Name Role Phone Yrn Bond MD Unavailable Unavailable Allergies, Adverse Reactions, Alerts Substance Reaction Severity Status amoxicillin Rash Unknown Active Medications Medication Instructions Dosage Effective Dates Status Comments (start - stop) VITAMIN C (unknown - Active strength) FOLIC ACID - Active (unknown strength) Generic [...] third trimester 33 weeks gestation of - Abnormal glucose complicating [...] gestation of - Active Procedures Procedure Date Unknown Results Test Name Date and Time Measure Units Reference Range Abnormal Flag Comments Unknown Advance Directives Directive Yes / No Effective Date File Name Unknown Encounters Encounter Practice Location Reason(s) Diagnoses Date Provider Care Team Description For Visit Members Katelin Obando Abnormal glucose Dec-2 Vazquez Referring In Womens complicating 7-201 Elizabeth. Provider: Roel DAMICO, pregnancyEncounte 7 700 Yrn PO Box r for suprvsn of Medical [facility] B, 1522, normal , Center [address] [place] [address], third [email or web address] , [facility], weeks gestation 120, Center, , of Topher [place], [place], [address]. tel:[phone] tel: , . [id number] tel: [phone] Katelin [place] Dec-1 Vazquez In Womens 9-201 Elizabeth. Roel DAMICO, 7 700 PO Box Medical 1522, [place] [address] [place], [facility], 120, [id number], [facility], tel:[phone] , [place]. tel: [phone] Katelin [place] Encounter for Dec-1 Vazquez Referring In Womens suprvsn of normal 2-201 Elizabeth. Provider: Roel DAMICO, , third 7 700 Yrn [address] [email or web address] weeks Medical Varun B, 1522, gestation of Center [address] [place] [address], Dr [facility], 120, Center, [id number], Topher [place], [place], [address]. tel: [phone] tel: , . [id number] tel: [phone] Katelin [place] Abnormal glucose Nov-2 Vazquez Referring In Womens complicating 2-201 Elizabeth. Provider: Roel DAMICO, 7 700 Yrn PO Box Medical Varun B, 1522, Center [facility] Dr Carey [facility], 120, Center, , Topher [place], [place], [address]. tel:[phone] tel: , . [id number] tel: [phone] Katelin [place] Encounter for Nov-1 Vazquez Referring In Womens suprvsn of normal 7-201 Elizabeth. Provider: Health MARGAUX, , second 7 700 Yrn [address] Box [email or web address] weeks Medical [facility], 1522, gestation of Center [address] [place] [address], , [facility], 120, [place], [id number], Topher [place], [place], [address]. tel:[phone] tel: , . [id number] tel: [phone] Katelin [place] Encounter for Oct-2 Vazquez Referring In Womens suprvsn of normal 4-201 Elizabeth. Provider: Health MARGAUX, , second 7 700 Yrn [address] Box [email or web address] weeks Medical [facility], 1522, gestation of Center [address] [place] [address], Dr [facility], 120, [place], , Topher [place], [place], [address]. tel:[phone] tel: , . [id number] tel: [phone] Katelin [place] Encounter for Sep-2 Vazquez Referring In Womens suprvsn of normal 5-201 Elizabeth. Provider: Roel DAMICO, , second 7 700 Yrn [address] [id number] weeks Medical [facility], 1522, gestation of Center [address] [place] [address], Dr [facility], 120, [place], , Topher [place], [place], [address]. tel:[phone] tel: , . [id number] tel: [phone] Katelin [place] Encounter for Sep-2 Vazquez Referring In Womens Ultrasound suprvsn of normal 5-201 Elizabeth. Provider: Health MARGAUX, , second 7 700 Yrn [address] Box [email or web address] weeks Medical Varun B, 1522, gestation of Center [address] [place], , [facility], 120, [place], , Topher [place], [place], [address]. tel:[phone] tel: , [place]. 8117120 tel: [phone] Katelin [place] Encounter for Aug-1 Vazquez Referring In Womens suprvsn of normal 6-201 Elizabeth. Provider: Roel DAMICO, , second 7 700 Yrn PO Box [email or web address] weeks Medical Varun B, 1522, gestation of Center [address] [place], , [facility], 120, Center, [id number], Topher [place], [place], [address]. tel:[phone] tel: , [place]. [id number] tel: [phone] Katelin [place] Encounter for Rosales-1 Vazquez Referring In Womens suprvsn of normal 9-201 Elizabeth. Provider: Roel DAMICO, , first 7 700 Yrn PO Box [email or web address] weeks Medical Varun B, 1522, gestation of Center [address] [place], , [facility], 120, [place], [id number], Topher [place], [place], [address]. tel:[phone] tel: , . [id number] tel: [phone] Katelin [place] Oct-2 Vazquez Referring In Womens Follow-Up, 7-201 Elizabeth. Provider: Roel DAMICO, Routine 5 700 Yrn PO Box Medical Varun B, 1522, Center 720 [place], , [facility], 120, [place], [id number], Topher [place], [place], [address]. tel:[phone] tel: , . [id number] tel: [phone] Katelin [place] Aug-1 Vazquez Referring In Womens 2-201 Elizabeth. Provider: Roel DAMICO, 5 700 Elizabeth PO Box Medical Vazquez L, 1522, Center [address] [place], [facility], 120, Center [id number], [place] [address], Topher [place], tel:[phone] [place], , . [id number]. tel: tel: [phone] Katelin [place] Rosales-2 Vazquez In Womens Elizabeth. [facility], [facility], 5 700 PO [facility] 1522, [place] [address] [place], [facility] [place], 120, [id number], [facility] [place], tel:+[phone] , [place]. tel: [phone] Associates May- Alejandro In Womens - [place]. [facility], [facility], 3 700 PO Box Medical 1522, [place] [address] [place], [place], 120, [id number], [facility] [place], tel:[phone] [address] , [place]. tel: [phone] Family History Family Member Diagnosis Age At [...] name Insurance type Covered libertarian ID Authorization(s) [facility] [id number] [facility] [id number] [facility] [id number] Social History Type Description Quantity Date Captured Unknown Vital Signs Date / Height Weight BMI Pulse Blood Temperature Respiratory Body Head BMI Time: Rate Pressure Rate Surface Circumference percentile Area Unknown Chief Complaint And Reason For Visit Unknown Chief Complaint And Reason For Visit Reason For Referral Reason For Referral Unknown Plan Of Care Date Type Action Status Appointment Jjoo Loza BOOKED Appointment Jojo Loza BOOKED Appointment Jojo Loza BOOKED Appointment Jojo Loza BOOKED Appointment Jojo Loza BOOKED Appointment Jojo Loza BOOKED Future Order: Radiology Order Complete OB Ultrasound > 14 Ordered Weeks ([id number]) Date Type Problem Goal Intervention Status Start [...]
--- OUTSIDE RECORDS SUMMARY | 2017-06-06 20:41 | External Medical Summary | Continuity of Care Document ---
:1986 Author Organization [facility] Address [address] [place], [place] [phone] Phone Care Team Providers Name Role Phone [...] Reference Range Abnormal Flag Comments Panel Description: GLUCOSE TOLERANCE TEST, GESTATIONAL,4SPEC(100G) GLUCOSE, FASTING 08:07:00 67 mg/dL 65-94 N GLUCOSE, 1 HOUR 08:07:00 121 mg/dL <180 N GLUCOSE, 2 HOUR 08:07:00 105 mg/dL <155 N GLUCOSE, 3 HOUR 08:07:00 105 mg/dL <140 N [id number] 08:07:00 See Below Jaramillo/Coustan Criteria: Two or more values greater than the above reference intervals are suggestive of gestational diabetes. REPORT COMMENT:FASTING:YESTe st performed at [facility] [id number] [place] [address]Urbfgykr: ERMA MEJIA DO,MPH Advance Directives Directive Yes / No Effective Date File Name Unknown Encounters Encounter Practice Location Reason(s) Diagnoses Date Provider Care Team Description For Visit Members Katelin Obando Abnormal Nov-2 Vazquez Referring In Womens glucose 2-201 Elizabeth. Provider: Roel DAMICO, complicating 7 [address], [place], [place], [place] [id number], , [facility] 120, Center, tel:+ Topher Obando, [address] [place] [address], [address]. [id number] tel: , [place]. 1987199 tel: [phone] Katelin Obando Nov-2 Vazquez In Womens 0-201 Elizabeth. Roel DAMICO, 7 700 [address], [place], [place], [place] [id number], , [facility] 120, tel:+ Topher[address], [id number] , [place]. tel: [phone] Katelin Obando Encounter for Nov-1 Vazquez Referring In Womens suprvsn of 7-201 Elizabeth. Provider: Roel DAMICO, normal 7 [address], , [place], [place], [facility] Center 720 [id number], [email or web address] , [facility] weeks 120, Center, tel:+[phone] gestation of Topher Obando, [facility] [place], [address]. [id number] tel: , [place]. [id number] tel: [phone] Katelin Obando Encounter for Oct-2 Vazquez Referring In Womens suprvsn of 4-201 Elizabeth. Provider: Roel DAMICO normal 7 700 Yrn [address], , Medical Varun , [place], second Center 720 [id number], [facility] US weeks 120, Center, tel:+ gestation of Topher Obando, [address] [place], [address]. [id number] tel: , [place]. 0372192 tel: [phone] Katelin Obando Encounter for Sep-2 Vazquez Referring In Womens suprvsn of 5-201 Elizabeth. Provider: Roel DAMICO normal 7 700 [address]rn [address], , Medical [facility], [place], second Center 720 [id number], [email or web address] [facility] US weeks 120, Center, tel:+ gestation of Topher [place]bando, [address] [place], [address]. [id number] tel: , [place]. [id number] tel: [phone] Katelin Obando Encounter for Sep-2 Vazquez Referring In Womens Ultrasound suprvsn of 5-201 Elizabeth. Provider: Roel DAMICO normal 7 700 Yrn [address], , Medical [facility], [place], second Center [id number], [email or web address] [facility] US weeks 120, Center, tel: gestation of Topher Obando, [address] [place], [address]. [id number] tel: , [place]. 7829143 tel: [phone] Katelin Obando Encounter for Aug-1 Vazquez Referring In Womens suprvsn of 6-201 Elizabeth. Provider: Roel DAMICO normal 7 700 Yrn [address], , Medical Varun , [place], second Center 720 [id number], [email or web address] [facility] US weeks 120, Center, tel:+ gestation of Topher Obando, [address] [place], [address]. [id number] tel:+ , [place]. [id number] tel: [phone] Katelin Obando Encounter for Oct- Vazquez Referring In Womens suprvsn of Elizabeth. Provider: Health MARGAUX, normal 7 700 [address]rn [address], , Medical Varun B, [place], first Center 720 [id number], [email or web address] , [facility] weeks 120, Center, tel:21 gestation of Topher Obando, [address] [place], [address]. [id number] tel: , [place]. 0942761 tel: [phone] Katelin Obando Oct-2 Vazquez Referring In Womens Follow-Up, Elizabeth. Provider: Health MARGAUX, Routine 5 700 Yrn [address], Medical Varun B, [place], Center [id number], , [facility] 120, Center, tel: Topher Obando, [address] [place], [address]. [id number] tel: , [place]. 4507254 tel: [phone] Katelin Obando Nov- Vazquez Referring In Womens 2- Elizabeth. Provider: Health MARGAUX, 5 700 Elizabeth [address], Medical Vazquez Sand[place], Center [address] [id number], Dr [facility] 120, [place] tel: Topher [facility] 120, [address] Topher [place]EN, [id number] [place], , [place]. [id number]. tel: tel: [phone] Katelin Obando Oct-2 Vazquez In Womens - Elizabeth. Health PA, 5 700 [address], [place], [place], [place] [id number], , [facility] 120, tel:+ Topher [address]142[facility], [id number] , [place]. tel: [phone] Associates May- Alejandro In Womens - [place]. Health PA, 3 700 [address], [place], [place], [place] [id number], Dr [facility] 120, tel: Topher 14213[facility], [id number] , [place]. tel: [phone] Family History Family Member Diagnosis Age At [...] name Insurance type Covered democrat ID Authorization(s) [employer] CI [id number] [facility] [place] [id number] [facility] [place] [id number] Social History Type Description Quantity Date Captured [...] Complete OB Ultrasound > 14 Ordered Weeks (67204) Date Type Problem Goal Intervention Status Start [...]
--- OUTSIDE RECORDS SUMMARY | 2017-06-06 20:41 | External Medical Summary | Continuity of Care Document ---
:1986 Author Organization [facility] Address [address] [place], [place] [phone] Phone Care Team Providers Name Role Phone [...] Description For Visit Members Katelin Obando Encounter for Dec-1 Vazquez Referring In [facility] of 2-201 Elizabeth. Provider: Roel DAMICO, normal 7 700 [address], , Medical Varun B, [place], third Center 720 [id number], , [facility] weeks 120, Center, tel:+21 gestation of Topher Obando, [address] [place], [address]. [id number] tel: , [place]. 9537484 tel: [phone] Katelin Obando Dec-0 Vazquez In Womens 5-201 Elizabeth. Roel DAMICO, 7 700 [address], [place], [place], [place] [id number], , [facility] 120, tel:+[address], [id number] , [place]. tel: [phone] Katelin Obando Abnormal Nov-2 Vazquez Referring In Women glucose 2-201 Elizabeth. Provider: Roel DAMICO, complicating 7 700 [address], Medical Varun B, [place], Center [id number], Dr [facility] 120, Center, tel:+21 Topher Obando, [address] [place], [address]. [id number] tel: , [place]. 1729954 tel: [phone] Katelin Obando Encounter for Nov-1 Vazquez Referring In [facility] of 7-201 Elizabeth. Provider: Roel DAMICO, normal 7 700 [address]rn [address], , Medical Varun B, [place], second Center 720 [id number], [email or web address] , [facility] weeks 120, Center, tel:+[phone] gestation of Topher Topher, [address] [place], [address]. [id number] tel: , [place]. 3083915 tel: [phone] Katelin Obando Encounter for Oct-2 Vazquez Referring In Womens suprvsn of 4- Elizabeth. Provider: Health MARGAUX, normal 7 700 [address], , Medical Varun B, [place], second Center 720 [id number], [email or web address] [facility] US weeks 120, Center, tel:+21 gestation of Topher Obando, [address] [place], [address]. [id number] tel:+ , [place]. 6965934 tel: [phone] Katelin Obando Encounter for Sep-2 Vazquez Referring In Womens suprvsn of 5- Elizabeth. Provider: Health MARGAUX, normal 7 700 [address], , Medical Varun B, [place], second Center 720 [id number], [email or web address] [facility] US weeks 120, Center, tel:+21 gestation of Topher Obando, [address] [place], [address]. [id number] tel:+ , [place]. 5729485 tel: [phone] Katelin Obando Encounter for Sep-2 Vazquez Referring In Womens Ultrasound suprvsn of Elizabeth. Provider: Roel DAMICO, normal 7 700 Yrn [address], , Medical Varun B, [place], second Center 720 [phone], [email or web address] [facility] US weeks 120, Center, tel:+21 gestation of Topher Obando, [address] [place], [address]. [id number] tel:+ , [place]. 4808538 tel: [phone] Katelin Obando Encounter for Aug-1 Vazquez Referring In Womens suprvsn of 6-201 Eilzabeth. Provider: Health MARGAUX, normal 7 700 [address]rn [address], , Medical Varun B, [place] second [place] [id number], [email or web address] [facility] US weeks 120, Center, tel:+21 gestation of Topher Obando, [address] [place], [address]. [id number] tel:+ , [place]. 5505213 tel: [phone] Katelin Obando Encounter for Rosales- Vazquez Referring In Womens suprvsn of - Elizabeth. Provider: Health MARGAUX, normal 7 700 [address]rn [address], , [facility], [place], first Center 720 [id number], [email or web address] , [facility] weeks 120, Center, tel:+21 gestation of Topher Obando, [address] [place], [address]. [id number] tel: , [place]. 1213610 tel: [phone] Associates Topher Jan- Vazquez Referring In Womens Follow-Up, Elizabeth. Provider: Health MARGAUX, Routine 5 700 [address], [facility] Varun B, [place], [place] [id number], , [facility] 120, Center, tel: Topher Topher, [address] [place], [address]. [id number] tel: , [place]. 2301436 tel: [phone] Katelin Obando Nov- Vazquez Referring In Womens 2- Elizabeth. Provider: Health PA, 5 700 Elizabeth [address], Medical [place], [place] [id number], , [facility] 120, [place] tel: [place] [address], [address] [place], [place], [id number] [place], , [place]. [id number]. tel: tel: [phone] Associates Topher Oct-2 Vazquez In Womens - Elizabeth. Health PA, 5 700 [address], [place], [place], [place] [id number], , [facility] 120, tel: Topher [address] [place] [address], [id number] , [place]. tel: [phone] Associates Fe- Alejandro In Womens - Concetta. Health PA, 3 700 [address], [place], [place], [place] [id number], , [facility] 120, tel:+ Topher[address], [id number] , [place]. tel: [phone] Family History Family Member Diagnosis Age At [...] name Insurance type Covered libertarian ID Authorization(s) [facility] [id number] [facility] [id number] [facility] [id number] Social History Type Description Quantity Date Captured [...] BOOKED Appointment Jojo Loza BOOKED Appointment Jojo oLza BOOKED Appointment Jojo Loza BOOKED Appointment Jojo Loza BOOKED Future Order: Radiology Order Complete OB Ultrasound > 14 Ordered Weeks (27958) Date Type Problem Goal Intervention Status Start [...]
--- OUTSIDE RECORDS SUMMARY | 2017-06-06 20:41 | External Medical Summary | Continuity of Care Document ---
:1986 Author Organization [facility] Address [address] [place], [place] [id number] Phone Care Team Providers Name Role Phone [...] second trimester 20 weeks gestation of - Active Procedures Procedure Date Ultrasound exam of preg uterus, complete Results Test Name Date and Time Measure Units Reference Range Abnormal Flag Comments Unknown Advance Directives Directive Yes / No Effective Date File Name Unknown Encounters Encounter Practice Location Reason(s) Diagnoses Date Provider Care Team Description For Visit Members Associates Topher Encounter Vazquez Referring In [facility] for suprvsn -2016 Elizabeth. Provider: Health PA, of normal 700 Y[address], , Medical Varun B, [place], second Center [id number], [email or web address] [facility] US weeks 120, Center, tel: gestation of Topher Obando, [address] [place], [address]. [id number] tel:+ , [place]. 1587576 tel: [phone] Katelin Obando Encounter Vazquez Referring In Womens Ultrasound for suprvsn -2016 Elizabeth. Provider: Health PA, of normal 700 [address], , Medical Varun B, [place], second Center [id number], [email or web address] Dr [facility] US weeks 120, Center, tel: gestation of Topher Obando, [address] [place], [address]. [id number] tel:+ , [place]. 8956344 tel: [phone] Katelin Obando Encounter Vazquez Referring In Womens for suprvsn -2016 Elizabeth. Provider: Health PA, of normal 700 Y[address], , Medical Varun B, [place], second Center [id number], [email or web address] Dr [facility] US weeks 120, Center, tel: gestation of Topher Obando, [address] [place], [address]. [id number] tel:+ , [place]. 7804577 tel: [phone] Katelin Obando Encounter Vazquez Referring In Womens for suprvsn -2016 Elizabeth. Provider: Health PA, of normal 700 Yrn [address], , Medical Varun B, [place], first Center [address] [id number], [email or web address] Dr [facility] US weeks 120, Center, tel: gestation of Topher Obando, [address] [place], [address]. [id number] tel:+ , [place]. 5243048 tel: [phone] Katelin Obando Vazquez Referring In Womens Follow-Up, -2014 Elizabeth. Provider: Health PA, Routine 700 Yrn [address], Medical Varun B, [place], [place] [id number], , [facility] 120, Center, tel:21 Topher Obando, [address] [place], [address]. [id number] tel: , . [id number] tel: [phone] Katelin Obando Vazquez Referring In Women Elizabeth. Provider: Health Otto DAMICO [address], Medical Vazquez Sand[place], [place], [place] [id number], , [facility] 120, [place] Dr tel:[address] [facility] 120, [address] [place], [place], [id number] [place], , [place]. [id number]. tel: tel: [phone] Associates Topher Vazquez In Women Elizabeth. Health PA, 700 [address], [place], [place], [place] [id number], , [facility] 120, tel: Topher [address], [id number] , [place]. tel: [phone] Katelin Alejandro In Women Conc[place]. Health PA, 700 [address], [place], [place], [place] [id number], , [facility] 120, tel:21 Obando [address], [id number] , [place]. tel: [phone] Family History Family Member Diagnosis Age At [...] Record Payers Payer name Insurance type Covered alliance party ID Authorization(s) [facility] [id number] [facility] [id number] [facility] [id number] Social History Type Description Quantity Date Captured [...] Complete OB Ultrasound > 14 Ordered Weeks (46180) Date Type Problem Goal Intervention Status Start [...]
--- OUTSIDE RECORDS SUMMARY | 2017-06-06 20:42 | External Medical Summary | Continuity of Care Document ---
:1986 Author Organization [facility] Address [address] [place], [place] [phone] Phone Care Team Providers Name Role Phone [...] - stop) Clinical Status Follow-Up, Routine - Abnormal glucose complicating - Encounter for [...] gestation of - Active Procedures Procedure Date Glucose tolerance test (GTT) GTT-added samples Venpnctr fngr/heel/ear stick routne Results Test Name Date and Time Measure Units Reference Range Abnormal Flag Comments Unknown Advance Directives Directive Yes / No Effective Date File Name Unknown Encounters Encounter Practice Location Reason(s) Diagnoses Date Provider Care Team Description For Visit Members Katelin Obando Encounter for Mar- Vazquez Referring [facility] of [facility]201 Elizabeth. Provider: Roel DAMICO, normal 7 700 [address]rn [address], , Medical Varun B, [place], third Center [id number], [email or web address] , [facility] weeks 120, Center, tel:+21 gestation of Topher Obando, [address] [place], [address]. [id number] tel: , [place]. 7917468 tel: [phone] Katelin Obando Abnormal Nov-2 Vazquez Referring In Womens glucose 2-201 Elizabeth. Provider: Roel DAMICO, complicating 7 700 [address]rn [address], Medical Varun B, [place], Center [address] [id number], Dr [facility] 120, Center, tel:+ Topher Obando, [address] [place], [address]. [id number] tel:+ , [place]. 8095686 tel: [phone] Katelin Obando Encounter for Feb- Vazquez Referring In W[facility]ens [facility]201 Elizabeth. Provider: Roel DAMICO, normal 7 700 Yrn [address], , Medical Varun B, [place], second Center [id number], [email or web address] Dr [facility] weeks 120, Center, tel:+21 gestation of Topher Obando, [address] [place], [address]. [id number] tel:+ , [place]. 4235056 tel: [phone] Katelin Obando Encounter for Oct-2 Vazquez Referring In Womens suprvsn of 4-201 Elizabeth. Provider: Roel DAMICO, normal 7 700 Yrn [address], , Medical Varun B, [place], second Center 720 , [email or web address] Dr [facility] US weeks 120, Center, tel: gestation of Topher Obando, [address] [place], [address]. [id number] tel: , [place]. 8362976 tel: [phone] Katelin Obando Encounter for Sep-2 Vazquez Referring In Womens suprvsn of 5-201 Elizabeth. Provider: Roel DAMICO, normal 7 700 Yrn [address], , Medical Varun B, [place], [place], second Center 720 , [email or web address] Dr [facility] US weeks 120, Center, tel:+ gestation of Topher Obando, [address] [place], [address]. [id number] tel: , [place]. 8012831 tel: [phone] Katelin Obando Encounter for Sep-2 Vazquez Referring In Womens Ultrasound suprvsn of 5-201 Elizabeth. Provider: Roel DAMICO, normal 7 700 Yrn [address], , Medical Varun B, [place], [place], second Center 720 , Dr [facility] weeks 120, Center, tel: gestation of Topher Obando, [address] [place], [address]. [id number] tel: , [place]. 8195101 tel: [phone] Katelin Obando Encounter for Aug-1 Vazquez Referring In Womens suprvsn of 6-201 Elizabeth. Provider: Roel DAMICO, normal 7 700 [address], , Medical Varun [place], [place], second Center 720 , [email or web address] Dr [facility] US weeks 120, Center, tel:+ gestation of Topher Obando, [address] [place], [address]. [id number] tel: , [place]. 1965237 tel: [phone] Katelin Obando Encounter for Rosales-1 Vazquez Referring In Womens suprvsn of 9-201 Elizabeth. Provider: Roel DAMICO, normal 7 700 Yrn [address], , Medical Varun B, [place], first Center 720 [id number], [email or web address] Dr [facility] weeks 120, Center, tel: gestation of Topher Obando, [address] [place], [address]. [id number] tel: , [place]. 0600295 tel: [phone] Katelin Obando Oct- Vazquez Referring In Womens Follow-Up, Elizabeth. Provider: Health PA, Routine 5 700 Yrn [address], [facility] Varun [place], [place] [id number], , [facility] 120, Center, tel: Topher Obando, [address] [place], [address]. [id number] tel: , [place]. 0745468 tel: [phone] Katelin Obando Nov- Vazquez Referring In Womens 2- Elizabeth. Provider: Health PA, 5 700 Elizabeth [address], Medical Vazquez [place], [place] [id number], , [facility] 120, [place] tel: [place] [address], [address] [place], [place], [id number] [place], , [place]. [id number]. tel: tel: [phone] Katelin Obando Oct-2 Vazquez In Womens - Elizabeth. Health PA, 5 700 [address], [place], [place], [place] [id number], , [facility] 120, tel: Topher [address]5826[facility], [id number] , [place]. tel: [phone] Associates May- Alejandro In Womens -201 [place]. Health PA, 3 700 [address], [place], [place], [place] [id number], , [facility] 120, tel: Topher 36747[facility], [id number] , [place]. tel: [phone] Family History Family Member Diagnosis Age At [...] Insurance type Covered alliance party ID Authorization(s) [facility] [id number] [employer] [place] [id number] [employer] [place] [id number] Social History Type Description Quantity Date Captured [...] Complete OB Ultrasound > 14 Ordered Weeks (62247) Date Type Problem Goal Intervention Status Start [...]
--- OUTSIDE RECORDS SUMMARY | 2017-06-06 20:42 | External Medical Summary | Continuity of Care Document ---
:1986 Author Organization [facility] Allergies Active Description Code Type Severity Reaction Onset Reported/ Identified Relationship Clinical to Patient Status Yes amoxicillin 3675 1 N/A Rash Medications There is no data. Problems Date Dx Attending Type Code Diagnosis Diagnosed By Coded 01/09/2015 Elizabeth Shukla 645.11 POST TERM PREG-DEL L 01/09/2015 Elizabeth Shukla 664.01 DEL W 1 DEG L LACERAT-DEL 01/13/2017 Elizabeth Shukla Z34.82 Encounter for L suprvsn of normal , second trimester 01/13/2017 Elizabeth Shukla Z3A.20 20 weeks gestation L of 03/17/2017 Elizabeth Shukla O99.810 Abnormal glucose L complicating 03/17/2017 Elizabeth Shukla O99.810 Abnormal glucose L complicating 05/05/2017 Eliazbeth Shukla O35.8xx0 Maternal care for L oth abnormality and damage, unsp 05/05/2017 Elizabeth Shukla O99.810 Abnormal glucose L complicating 05/05/2017 Elizabeth Shukla Z3A.36 36 weeks gestation L of Procedures Code Description [place] [address] Routine 01/05/2015 obstetric care 05922 Ultrasnd 01/13/2017 exam of preg uterus, compl 46741 Venpnctr 03/12/2017 fngr/heel/ear stick routne 08877 Glucose 03/12/2017 tolerance test (GTT) 14519 GTT-added 03/12/2017 samples 46576 Ultrasnd 05/05/2017 preg uterus, flwup/repeat Results There is no data. Encounters ACCT No. Visit Discharge Status Pt. Type Provider Facility Loc./Unit Complaint Date/Time [id number] 05/26/2017 05/26/2017 CLS Outpatient Vazquez, 09:30:00 23:59:59 Elizabeth Sanderson [id number] 05/21/2017 05/21/2017 CLS Outpatient Vazquez, 09:36:00 23:59:59 Elizabeth L [id number] 05/19/2017 05/19/2017 CLS Outpatient Vazquez, 08:45:00 23:59:59 Elizabeth L [id number] 05/12/2017 05/12/2017 CLS Outpatient Vazquez, 08:30:00 23:59:59 Elizabeth L [id number] 05/05/2017 05/05/2017 CLS Outpatient Vazquez, 09:00:00 23:59:59 Elizabeth L [id number] 05/05/2017 05/05/2017 CLS Outpatient Vazquez, 08:45:00 23:59:59 Elizabeth L [id number] 04/16/2017 04/16/2017 CLS Outpatient Vazquez, 14:40:00 23:59:59 Elizabeth L [id number] 04/08/2017 04/08/2017 CLS Outpatient Vazquez, 17:07:00 23:59:59 Elizabeth L [id number] 04/02/2017 04/02/2017 CLS Outpatient Vazquez, 10:42:00 23:59:59 Elizabeth L [id number] 04/01/2017 04/01/2017 CLS Outpatient Vazquez, 16:30:00 23:59:59 Elizabeth L [id number] 03/25/2017 03/25/2017 CLS Outpatient Vazquez, 13:25:00 23:59:59 Elizabeth L [id number] 03/12/2017 03/12/2017 CLS Outpatient Vazquez, 09:34:00 23:59:59 Elizabeth L [id number] 03/10/2017 03/10/2017 CLS Outpatient Vazquez, 08:23:00 23:59:59 Elizabeth L [id number] 03/07/2017 03/07/2017 CLS Outpatient Vazquez, 14:10:00 23:59:59 Elizabeth L [id number] 02/11/2017 02/11/2017 CLS Outpatient Vazquez, 11:30:00 23:59:59 Elizabeth L [id number] 01/13/2017 01/13/2017 CLS Outpatient Vazquez, 09:00:00 23:59:59 Elizabeth L [id number] 01/13/2017 01/13/2017 CLS Outpatient Vazquez, 08:45:00 23:59:59 Elizabeth L [id number] 12/04/2016 12/04/2016 CLS Outpatient Vazquez, 14:50:00 23:59:59 Elizabeth L [id number] 11/06/2016 11/06/2016 CLS Outpatient Vazquez, 13:15:00 23:59:59 Elizabeth L [id number] 02/14/2015 02/14/2015 CLS Outpatient Vazquez, 10:30:00 23:59:59 Elizabeth L [id number] 01/05/2015 01/05/2015 CLS Outpatient Vazquez, 13:58:00 23:59:59 Elizabeth L [id number] 01/03/2015 01/03/2015 CLS Outpatient Vazquez, 08:30:00 23:59:59 Elizabeth L [id number] 12/28/2014 12/28/2014 CLS Outpatient Vazquez, 14:00:00 23:59:59 Elizabeth L [id number] 12/22/2014 12/22/2014 CLS Outpatient Xavier, 08:30:00 23:59:59 Wilfredo Rothman [id number] 12/14/2014 12/14/2014 CLS Outpatient Vazquez, 08:30:00 23:59:59 Elizabeth L [id number] 12/07/2014 12/07/2014 CLS Outpatient Vazquez, 09:30:00 23:59:59 Elizabeth L [id number] 06/02/2017 Document 08:30:00 Registration
--- OUTSIDE RECORDS SUMMARY | 2017-06-06 20:42 | External Medical Summary | Continuity of Care Document ---
:1985 Author Organization [facility] Address [address] [place], [place] [id number] Phone Care Team Providers Name Role Phone [...] complicating - 36 weeks gestation of - Encounter for [...] third trimester 36 weeks gestation of - Abnormal glucose [...] gestation of - Active Procedures Procedure Date Ultrasnd preg uterus, flwup/repeat Results Test Name Date and Time Measure Units Reference Range Abnormal Flag Comments Unknown Advance Directives Directive Yes / No Effective Date File Name Unknown Encounters Encounter Practice Location Reason(s) Diagnoses Date Provider Care Team Description For Visit Members Katelin [place] Maternal care for Apr- Vazquez [facility]201 Elizabeth. Provider: Health MARGAUX, abnormality and 8 700 Yrn PO Box damage, Medical [facility], 1522, unspAbnormal [place] [address] glucose , [facility], complicating 120, [place], [id number], pregnancyEncounte Topher [place], [place], [address]. tel:[phone] , [phone] tel:+ [phone] third , [place]. [id number] weeks gestation tel: of [phone] Katelin [place] Encounter for Apr-2 Vazquez [facility]201 Elizabeth. Provider: Health MARGAUX, , third 8 700 Yrn PO Box [email or web address] weeks Medical Varun B, 1522, gestation of Center [address] [place], , [facility], 120, [place], [id number], Topher [place], [place], [address]. tel: tel: , . [phone] tel: [phone] Katelin [place]o Maternal care for Fabian-1 Vazquez Referring In Womens oth 5-201 Eilzabeth. Provider: Roel DAMICO, abnormality and 8 700 Yrn PO Box damage, [facility], 152, unspEncounter for Center [address] [place], suprvsn of normal Dr [facility], , third 120, Center, [id number], [email or web address] weeks [facility], [place], [address]. tel: tel: , [place]. [id number] tel: [phone] Katelin [place] Maternal care for Fabian-1 Vazquez Referring In Womens Ultrasound oth 5-201 Elizabeth. Provider: Roel DAMICO, abnormality and 8 700 Yrn PO Box damage, [facility], 152, unspAbnormal [address], glucose Dr [facility], complicating 120, Center, [id number], [email or web address] weeks [facility], [place], [address]. tel: tel: , [place]. [phone] tel: [phone] Katelin [place] Abnormal glucose Dec-2 Vazquez Referring In Womens complicating 7-201 Elizabeth. Provider: Roel DAMICO, pregnancyEncounte 7 700 Yrn PO Box r for suprvsn of [facility], 1522, normal , Center [address] [place] [address], third [email or web address] Dr [facility], weeks gestation 120, Center, [id number], of [place]her [place], [place], [address]. tel: tel: , . [id number] tel: [phone] Katelin [place] Encounter for Dec-1 Vazquez Referring In Womens suprvsn of normal 2-201 Elizabeth. Provider: Roel DAMICO, , third 7 700 Yrn PO Box [email or web address] weeks [facility], 1522, gestation of [address], Dr [facility], 120, Center, , Topher [place], [place], [address]. tel: tel: , [place]. [id number] tel: [phone] Katelin [place] Abnormal glucose Nov-2 Vazquez Referring In Womens complicating 2-201 Elizabeth. Provider: Health [place], 7 700 Yrn PO Box [facility], 1522, Center [facility] [place], , [facility], 120, [place], , Topher [place], [place], [address]. tel: tel: , [place]. [phone] tel: [phone] Katelin [place] Encounter for Nov-1 Vazquez Referring In Womens suprvsn of normal 7-201 Elizabeth. Provider: Health MARGAUX, , second 7 700 Yrn PO Box [email or web address] weeks [facility], 1522, gestation of Center [address] [place] [address], Dr [facility], 120, [place], , Topher [place], [place], [address]. tel: tel: , [place]. [id number] tel: [phone] Katelin [place]o Encounter for Oct-2 Vazquez Referring In Womens suprvsn of normal 4-201 Elizabeth. Provider: Roel DAMICO, , second 7 700 Yrn PO Box [email or web address] weeks [facility], 1522, gestation of Center [address] [place] [address], Dr [facility], 120, [place], , Topher [place], [place], [address]. tel: tel: , [place]. [id number] tel: [phone] Katelin [place]o Encounter for Sep-2 Vazquez Referring In Womens suprvsn of normal 5-201 Elizabeth. Provider: Roel DAMICO, , second 7 700 Yrn PO Box [email or web address] [address] [facility], 1522, gestation of Center [address] [place] [address], Dr [facility], 120, [place], , Topher Obando, [place], [address]. tel:[phone] tel: , US. [id number] tel: [phone] Katelin [place]o Encounter for Sep-2 Vazquez Referring In Womens Ultrasound suprvsn of normal 5-201 Elizabeth. Provider: Roel DAMICO, , second 7 700 Yrn PO Box [email or web address] weeks Medical [facility] B, 1522, gestation of Center [address] [place], , [facility], 120, Center, , Topher Obando, [place], [address]. tel:[phone] tel:+ , US. [id number] tel: [phone] Katelin [place]o Encounter for Aug-1 Vazquez Referring In Womens suprvsn of normal 6-201 Elizabeth. Provider: Roel DAMICO, , second 7 700 Yrn PO Box [email or web address] weeks Medical [facility] B, 1522, gestation of Center [address] [place], , [facility], 120, Center, , Topher Obando, [place], [address]. tel:[phone] tel: , US. [id number] tel: [phone] Katelin [place]o Encounter for Rosales-1 Vazquez Referring In Womens suprvsn of normal 9-201 Elizabeth. Provider: Roel DAMICO, , first 7 700 Yrn PO Box weeks Medical [facility] B, 1522, gestation of Center [address] [place], , [facility], 120, Center, , Topher [place]o, [place], [address]. tel:[phone] tel:+ , [place]. [id number] tel: [phone] Katelin [place]o Oct-2 Vazquez Referring In Womens Follow-Up, 7-201 Elizabeth. Provider: Roel DAMICO, Routine 5 700 Yrn PO Box Medical Avrun B, 1522, Center [address] [place], , [facility], 120, [place], , Topher Obando, [place], [address]. tel:[phone] tel: , . [id number] tel:[phone] Associates Topher Vazquez Referring In Womens 2-201 Elizabeth. Provider: Health MARGAUX, 5 700 Elizabeth PO Box Medical Vazquez L, 1522, Center [address], [facility] [place], 120, [place] [address] [id number], Topher [facility] 120, [place], [place], tel: [phone] [place], , . [id number]. tel: tel: [phone] Associates Topher Oct- Vazquez In Womens 9- Elizabeth. [facility], [address] [facility] 1522, [place] [address] [place], [facility] [place], 120, [id number], [facility], tel: [phone] , . tel: [phone] Associates Alejandro In Womens 1- Conc[place]. Health MARGAUX, 3 700 [facility] 1522, [place] [address], [facility], 120, [id number], [facility], tel: [phone] , [place]. tel: [phone] Family History Family Member Diagnosis Age At [...] name Insurance type Covered democrat ID Authorization(s) [facility] [id number] [facility] [id number] [facility] [id number] Social History Type Description Quantity Date Captured [...] Future Order: Radiology Order Ultrasound OB Follow-up (17637) Ordered Future Order: Radiology Order Complete OB Ultrasound > 14 Ordered Weeks (08474) Date Type Problem Goal Intervention Status Start [...]
--- OUTSIDE RECORDS SUMMARY | 2017-06-06 20:42 | External Medical Summary | Continuity of Care Document ---
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 tel:[phone] tel: , . [phone] tel: [phone] Katelin [place]bando Encounter for Dec-1 Vazuqez Referring In Womens suprvsn of normal 2-201 Elizabeth. Provider: Roel DAMICO, , third 7 700 Yrn PO Box [email or web address] weeks Medical [facility], 1522, gestation of Center [address] [place] [address], , [facility], 120, Center, [id number], Topher [place], [place], [address]. tel:[phone] tel:+ , . [id number] tel: [phone] Katelin [place]o Abnormal glucose Nov-2 Vazquez Referring In Womens complicating 2-201 Elizabeth. Provider: Roel DAMICO, 7 700 Yrn PO Box [facility], 1522, Center [facility] Carey, Dr [facility], 120, [place], [id number], Topher [place], [place], [address]. tel:[phone] tel: , . [id number] tel: [phone] Katelin Obando Encounter for Nov-1 Vazquez Referring In Womens suprvsn of normal 7-201 Elizabeth. Provider: Roel DAMICO, , second 7 700 Yrn PO Box [email or web address] weeks Medical [facility] B, 1522, gestation of Center [address] [place] [address], , [facility], 120, Center, [id number], Topher [place], [place], [address]. tel:[phone] tel:+ , [place]. [id number] tel: [phone] Katelin [place]o Encounter for Oct-2 Vazquez Referring In Womens suprvsn of normal 4-201 Elizabeth. Provider: Roel DAMICO, , second 7 700 Yrn PO Box weeks Medical [facility] B, 1522, gestation of Center [address] [place] [address], , [facility], 120, [place], , Topher [place], [place], [address]. tel:[phone] tel:+ , [place]. [phone] tel: [phone] Katelin Obando Encounter for Sep-2 Vazquez Referring In Womens suprvsn of normal 5-201 Elizabeth. Provider: Roel DAMICO, , second 7 700 Yrn PO Box [email or web address] weeks Medical [facility] B, 1522, gestation of Center [address] [place] [address], , [facility], 120, Center, , Topher [place], [place], [address]. tel:[phone] tel:+ , [place]. [id number] tel: [phone] Katelin Obando Encounter for Sep-2 Vazquez Referring In Womens Ultrasound suprvsn of normal 5-201 Elizabeth. Provider: Roel DAMICO, , second 7 700 Yrn PO Box [email or web address] weeks Medical [facility] B, 1522, gestation of Center [address] [place] [address], , [facility], 120, [place], , Topher [place], [place], [address]. tel:[phone] tel:+ , US. [id number] tel: [phone] Katelin Obando Encounter for Aug-1 Vazquez Referring In Womens suprvsn of normal 6-201 Elizabeth. Provider: Roel DAMICO, , second 7 700 Yrn PO Box [email or web address] weeks Medical [facility] B, 1522, gestation of Center [address] [place], , [facility], 120, Center, [id number], Topher [place], [place], [address]. tel:[phone] tel: , US. [id number] tel: [phone] Katelin Obando Encounter for Oct-1 Vazquez Referring In Womens suprvsn of normal 9-201 Elizabeth. Provider: Roel DAMICO, , first 7 700 Yrn PO Box [email or web address] weeks Medical Varun B, 1522, gestation of Center [address] [place], , [facility], 120, [place], [id number], Topher [place]o, [place], [address]. tel:[phone] tel: , US. [id number] tel: [phone] Katelin Obando Oct-2 Vazquez Referring In Womens Follow-Up, 7-201 Elizabeth. Provider: Roel DAMICO, Routine 5 700 Yrn PO Box Medical [facility] B, 1522, Center [address] [place], , [facility], 120, [place], [id number], Topher [place]o, [place], [address]. tel:[phone] tel: , US. [id number] tel: [phone] Katelin Obando Aug-1 Vazquez Referring In Womens 2-201 Elizabeth. Provider: Roel DAMICO, 5 700 Elizabeth PO Box Medical Vazquez L, 1522, Center [facility] [address] [place], [facility], 120, [place] [id number], Topher [place] [address], Topher [place], tel:[phone] [place], , [place]. [id number]. tel: tel: [phone] Katelin Obando Rosales-2 Vazquez In Womens 9-201 Elizabeth. Roel DAMICO, 5 700 PO Box Medical 1522, [place] [address], [facility] [place], 120, [id number], [place], [place], tel:[phone] , [place]. tel: [phone] Associates [facility] In Womens 1-201 Conc[place]. [facility], 3 700 PO Box Medical 1522, [place] [address], [facility] [place], 120, [id number], [facility] [place], tel:[phone] , . tel: [phone] Family History Family Member Diagnosis Age At [...] name Insurance type Covered democrat ID Authorization(s) [facility] [id number] [facility] [id number] [facility] [id number] Social History Type Description Quantity Date Captured Alcohol Use Details No Caffeine Use Details Unknown Tobacco Use Status Unknown Smoking Status Never smoker Vital Signs Date / Height Weight BMI Pulse Blood Temperature Respiratory Body Head BMI Time: Rate Pressure Rate Surface Circumference percentile Area 156.00 29.4 / lbs 7 mm[Hg] 4:37 kg/m PM eter (2) Chief Complaint And [...] Complete OB Ultrasound > 14 Ordered Weeks (65615) Date Type Problem Goal Intervention Status Start [...]
--- OUTSIDE RECORDS SUMMARY | 2017-06-06 20:42 | External Medical Summary | Continuity of Care Document ---
:1985 Author Organization [facility] Address [address] [place], [place] [phone] Phone Care Team Providers Name Role Phone [...] PO Box r for suprvsn of Medical [facility], 1522, normal , Center [address] [place] [address], third [email or web address] , [facility], weeks gestation 120, Center, , of Topher [place], [place], [address]. tel:[phone] tel: , . [id number] tel: [phone] Katelin Obando Dec-1 Vazquez In Womens 3-201 Elizabeth. Roel DAMICO, 7 700 PO Box Medical 1522, [place] [address], [facility], 120, [id number], [facility], tel:[phone] , [place]. tel: [phone] Katelin Obando Encounter for Dec-1 Vazquez Referring In Womens suprvsn of normal 2-201 Elizabeth. Provider: Roel DAMICO, , third 7 700 Yrn PO Box [email or web address] weeks Medical Varun B, 1522, gestation of Center [address] [place] [address], Dr [facility], 120, Center, [id number], Topher [place], [place], [address]. tel: [phone] tel: , . [id number] tel: [phone] Katelin Obando Abnormal glucose Nov-2 Vazquez Referring In Womens complicating 2-201 Elizabeth. Provider: Roel DAMICO, 7 700 Yrn PO Box Medical Varun B, 1522, Center [facility] Dr Carey [facility], 120, Center, , Topher [place], [place], [address]. tel:[phone] tel: , . [id number] tel: [phone] Katelin Obando Encounter for Nov-1 Vazquez Referring In Womens suprvsn of normal 7-201 Elizabeth. Provider: Health MARGAUX, , second 7 700 Yrn PO Box [email or web address] weeks Medical [facility], 1522, gestation of Center [address] [place] [address], , [facility], 120, [place], [id number], Topher [place], [place], [address]. tel:[phone] tel: , . [id number] tel: [phone] Katelin Obando Encounter for Oct-2 Vazquez Referring In Womens suprvsn of normal 4-201 Elizabeth. Provider: Health MARGAUX, , second 7 700 Yrn PO Box [email or web address] weeks Medical [facility], 1522, gestation of Center [address] [place] [address], Dr [facility], 120, [place], , Topher [place], [place], [address]. tel:[phone] tel: , . [id number] tel: [phone] Katelin Obando Encounter for Sep-2 Vazquez Referring In Womens suprvsn of normal 5-201 Elizabeth. Provider: Roel DAMICO, , second 7 700 Yrn PO Box [email or web address] weeks Medical [facility], 1522, gestation of Center [address] [place] [address], Dr [facility], 120, [place], , Topher [place]bando, [place], [address]. tel:[phone] tel: , . [id number] tel: [phone] Katelin Obando Encounter for Sep-2 Vazquez Referring In Womens Ultrasound suprvsn of normal 5-201 Elizabeth. Provider: Health MARGAUX, , second 7 700 Yrn PO Box [email or web address] weeks Medical Varun B, 1522, gestation of Center [address] [place], , [facility], 120, [place], , Topher [place], [place], [address]. tel:[phone] tel: , [place]. [id number] tel: [phone] Katelin Obando Encounter for Aug-1 Vazquez Referring In Womens suprvsn of normal 6-201 Elizabeth. Provider: Roel DAMICO, , second 7 700 Yrn PO Box [email or web address] weeks Medical Varun B, 1522, gestation of Center [address] [place], , [facility], 120, Center, [id number], Topher [place], [place], [address]. tel:[phone] tel: , [place]. [id number] tel: [phone] Katelin Obando Encounter for Rosales-1 Vazquez Referring In Womens suprvsn of normal 9-201 Elizabeth. Provider: Roel DAMICO, , first 7 700 Yrn PO Box [email or web address] weeks Medical Varun B, 1522, gestation of Center [address] [place], , [facility], 120, [place], [id number], Topher [place], [place], [address]. tel:[phone] tel: , . [id number] tel: [phone] Katelin Obando Oct-2 Vazquez Referring In Womens Follow-Up, 7-201 Elizabeth. Provider: Roel DAMICO, Routine 5 700 Yrn PO Box Medical Varun B, 1522, Center [address] [place], , [facility], 120, [place], [id number], Topher [place], [place], [address]. tel:[phone] tel: , . [id number] tel: [phone] Katelin Obando Aug-1 Vazquez Referring In Womens 2-201 Elizabeth. Provider: Roel DAMICO, 5 700 Elizabeth PO Box Medical Vazquez L, 1522, Center [address] [place], [facility], 120, Center [id number], [place]her [place] [address], Topher [place], tel:[phone] [place], , . [id number]. tel: tel: [phone] Katelin O[place]o Rosales-2 Vazquez In Womens Elizabeth. [facility], 5 700 PO [facility] 1522, [place] [address], [facility] [place], 120, [id number], [facility] [place], tel:[phone] , [place]. tel: [phone] Associates May- Alejandro In Womens - [place]. [facility], 3 700 PO Box Medical 1522, [place] [address], [place], 120, [id number], [facility] [place], tel:[phone] , [place]. tel: [phone] Family History Family Member Diagnosis Age At [...] name Insurance type Covered democrat ID Authorization(s) [facility] [id number] [facility] [id number] [facility] [id number] Social History Type Description Quantity Date Captured [...] Complete OB Ultrasound > 14 Ordered Weeks (83253) Date Type Problem Goal Intervention Status Start [...]
--- OUTSIDE RECORDS SUMMARY | 2017-06-06 20:42 | External Medical Summary | Referral Summary ---
:1985 Author Organization [facility] [address] [place] [address] Care Team Providers Name Role Phone Yrn Bond Primary Care Physician Encounter VC Date(s): 07/31/15 - 07/31/15 [facility] [address] [place] [address]- [place] Discharge Disposition: 01-Home or Self Care Attending Physician: Yrn Bond MD Admitting Physician: Yrn Bond MD Vital Signs Most recent to oldest [Reference Range]: 1 Temperature Tympanic [36.6-38.1 degC] 36.9 degC (07/31/15 3:18 PM) Peripheral Pulse Rate [60-100 bpm] 76 bpm (07/31/15 3:18 PM) Respiratory Rate [14-20 br/min] 16 br/min (07/31/15 3:18 PM) Blood Pressure [90-140/60-90 mmHg] 124/72 mmHg (07/31/15 3:18 PM) Problem List No data available for this section Allergies, Adverse Reactions, Alerts Substance Reaction Severity Status amoxicillin Active Medications calcium citrate Oral, BID, 0 Refill(s) Start Date: 07/31/15 Status: Orderedlysine mg, Oral, Daily, 0 Refill(s) Start Date: 07/31/15 Status: Orderedmupirocin 2% topical ointment 1 rosalina, Topical, TID, X 21 days, # 22 g, 1 Refill(s), Pharmacy: [facility] #[id number] Start Date: 07/31/15 Stop Date: 09/11/15 Status: OrderedPrenatal Multivitamins Oral, Daily, 0 Refill(s) Start Date: 07/31/15 Status: Ordered Results No data available for this section Immunizations No data available for this section Procedures No data available for this section Social History Social History Type Response Smoking Status Never smoker Assessment and Plan Extracted from: Title: Ambulatory Patient Education Author: Yrn Bond MD Date: 07/31/15 Home Health Care Cellulitis Cellulitis is an infection of the skin and the tissue beneath it. The infected area is usually red and tender. Cellulitis occurs most often in the arms and lower legs. CAUSES Cellulitis is caused by bacteria that enter the skin through cracks or cuts in the skin. The most common types of bacteria that cause cellulitis are staphylococci and streptococci. SIGNS AND SYMPTOMS Redness and warmth. Swelling. Tenderness or pain. Fever. DIAGNOSIS Your health care provider can usually determine what is wrong based on a physical exam. Blood tests may also be done. TREATMENT Treatment usually involves taking an antibiotic medicine. HOME CARE INSTRUCTIONS Take your antibiotic medicine as directed by your health care provider. Finish the antibiotic even if you start to feel better. Keep the infected arm or leg elevated to reduce swelling. Apply a warm cloth to the affected area up to 4 times per day to relieve pain. Take medicines only as directed by your health care provider. Keep all follow-up visits as directed by your health care provider. SEEK MEDICAL CARE IF: You notice red streaks coming from the infected area. Your red area gets larger or turns dark in color. Your bone or joint underneath the infected area becomes painful after the skin has healed. Your infection returns in the same area or another area. You notice a swollen bump in the infected area. You develop new symptoms. You have a fever. SEEK IMMEDIATE MEDICAL CARE IF: You feel very sleepy. You develop vomiting or diarrhea. You have a general ill feeling (malaise) with muscle aches and pains. MAKE SURE YOU: Understand these instructions. Will watch your condition. Will get help right away if you are not doing well or get worse. This information is not intended to replace advice given to you by your health care provider. Make sure you discuss any questions you have with your health care provider. Document Released: 01/15/2006 Document Revised: 08/22/2014 Document Reviewed: 06/22/2012 ExitCare Patient Information 2015 [employer]. No follow up information was provided. Extracted from: Title: cellulitis great toe Author: Yrn Bond MD Date: 07/31/15 Impression and Plan Diagnosis Cellulitis of great toe of right foot (NSQ41-FN L03.031, Working, Medical). Ingrown right big toenail (SLZ65-CI L60.0, Working, Medical). Plan: 1) Mupirocin ointment TID X 3 weeks or even longer. 2) Warm soaks. 3) Consider toenail excision of the3 lateral edge if not clearing up.. Orders Orders (Selected) Outpatient Orders Ordered Office Visit Level 3 Est 99253: Prescriptions Prescribed mupirocin 2% topical ointment: 1 rosalina, Topical, TID, for 21 days, 22 g, 1 Refill (s). Dx/Order Association Plan: Diagnosis: Cellulitis of great toe of right foot Comment: Ordered: Office Visit Level 3 Est 13089; 07/31/15 17:25:00 CDT, Cellulitis of great toe of right foot | Ingrown right big toenail Diagnosis: Ingrown right big toenail Comment: Ordered: Office Visit Level 3 Est 12778; 07/31/15 17:25:00 CDT, Cellulitis of great toe of right foot | Ingrown right big toenail Additional Orders: Comment: Ordered: mupirocin 2% topical ointment,1 rosalina, Topical, TID, X 21 days, # 22 g, 1 Refill(s), Pharmacy: [facility] #[id number] End of Orders ."
--- OUTSIDE RECORDS SUMMARY | 2017-06-06 20:42 | External Medical Summary | Continuity of Care Document ---
:1985 Author Organization [facility] Address [address] [place], [place] [id number] Phone Care Team Providers Name Role Phone [...] Maternal care for Vazquez Referring In Womens ot 5-201 Elizabeth. Provider: Roel DAMICO abnormality and 8 700 Yrn [address] damage, Medical Varun B, 1522, unspEncounter for Center [address], suprvsn of normal [facility] [place], , third 120, Center, [id number], weeks Topher [place], [place], [address]. tel: [phone] tel: , . [id number] tel: [phone] Katelin [place] Maternal care for Apr- Vazquez Referring In Womens Ultrasound oth 5-201 Elizabeth. Provider: Roel DAMICO, abnormality and 8 700 Yrn PO Box damage, Medical Varun B, 1522, unspAbnormal Center [address], glucose Dr [facility], complicating 120, Center, [id number], [email or web address] weeks Topher [place], [place], [address]. tel: [phone] tel: , . [id number] tel: [phone] Katelin [place] Abnormal glucose Dec-2 Vazquez Referring In Womens complicating 7-201 Elizabeth. Provider: Health PA, pregnancyEncounte 7 700 Yrn PO Box r for suprvsn of [facility], 1522, normal , Center [address] [place] [address], third [email or web address] , [facility], weeks gestation 120, Center, , of Topher [place], [place], [address]. tel:[phone] tel:+ , [place]. [id number] tel: [phone] Katelin [place] Encounter for Dec-1 Vazquez Referring In Womens suprvsn of normal 2-201 Elizabeth. Provider: Roel DAMICO, , third 7 700 Yrn PO Box weeks [facility], 1522, gestation of Center [address] [place] [address], , [facility], 120, Center, , Topher [place]o, [place], [address]. tel:[phone] tel:+ , [place]. [id number] tel: [phone] Katelin [place] Abnormal glucose Nov-2 Vazquez Referring In Womens complicating 2-201 Elizabeth. Provider: Roel DAMICO, 7 700 Yrn PO Box [facility], 1522, Center [facility] Carey, , [facility], 120, Center, , Topher [place]o, [place], [address]. tel:[phone] tel: , [place]. [id number] tel: [phone] Katelin [place] Encounter for Nov-1 Vazquez Referring In Womens suprvsn of normal 7-201 Elizabeth. Provider: Roel DAMICO, , second 7 700 Yrn PO Box [email or web address] weeks [facility], 1522, gestation of Center [address] [place] [address], , [facility], 120, Center, [id number], Topher [place]o, [place], [address]. tel:[phone] tel:+ , [place]. [id number] tel: [phone] Katelin [place] Encounter for Oct-2 Vazquez Referring In Womens suprvsn of normal 4-201 Elizabeth. Provider: Roel DAMICO, , second 7 700 Yrn PO Box [email or web address] weeks Medical Varun B, 1522, gestation of Center [address], , [facility], 120, Center, [id number], Topher [place]bando, [place], [address]. tel:[phone] tel:+ , [place]. [id number] tel: [phone] Katelin Oabndo Encounter for Sep-2 Vazquez Referring In Womens suprvsn of normal 5-201 Elizabeth. Provider: Health MARGAUX, , second 7 700 Yrn PO Box [email or web address] weeks Medical [facility] B, 1522, gestation of Center [address], , [facility], 120, Center, [id number], Topher [place]o, [place], [address]. tel:[phone] tel: , [place]. [id number] tel: [phone] Katelin Obadno Encounter for Sep-2 Vazquez Referring In Womens Ultrasound suprvsn of normal 5-201 Elizabeth. Provider: Health MARGAUX, , second 7 700 Yrn PO Box [email or web address] weeks Medical [facility] B, 1522, gestation of Center [address], , [facility], 120, Center, , Topher Obando, [place], [address]. tel:[phone] tel: , [place]. [id number] tel: [phone] Katelin [place]o Encounter for Aug-1 Vazquez Referring In Womens suprvsn of normal 6-201 Elizabeth. Provider: Roel DAMICO, , second 7 700 Yrn PO Box [email or web address] weeks Medical [facility] B, 1522, gestation of Center [address], , [facility], 120, Center, , Topher Obando, [place], [address]. tel:[phone] tel: , [place]. [id number] tel: [phone] Katelin [place]o Encounter for Rosales-1 Vazquez Referring In Womens suprvsn of normal 9-201 Elizabeth. Provider: Health MARGAUX, , first 7 700 Yrn PO Box [email or web address] weeks Medical [facility] B, 1522, gestation of Center [address] [place] [address], , [facility], 120, Center, [id number], Topher [place], [place], [address]. tel:[phone] tel: , . [id number] tel: [phone] Katelin [place]o Oct-2 Vazquez Referring In Womens Follow-Up, [place]. Provider: Health MARGAUX, Routine 5 700 Yrn [facility] B, 1522, Center [facility] Dr [place], [facility], 120, [place], [id number], [place], [place], [address]. tel:[phone] tel: , . [id number] tel: [phone] Katelin [place]o Nov- Vazquez Referring In Womens 2- Elizabeth. Provider: Roel DAMICO, 5 700 Elizabeth [facility] Medical Vazquez L, 1522, Center [address] [place], [facility], 120, [address] [place] , [place] [address], [facility], [place], tel:[phone] [place], , [place]. [id number]. tel: tel: [phone] Associates Topher Oct-2 Vazquez In Womens - Elizabeth. Health MARGAUX, 5 700 [facility] 1522, [address] [place], [facility], 120, [id number], [place], [place], tel:[phone] , [place]. tel: [phone] Katelin May- Alejandro In Womens 1-201 [place]. Health MARGAUX, 3 700 [facility] 1522, [address] [place], [facility] [place], 120, [id number], [place], [place], tel:[phone] , [place]. tel: [phone] Family History Family Member Diagnosis Age At [...] Insurance type Covered green party ID Authorization(s) [facility] [id number] [place] [id number] [place] [id number] Social History Type Description Quantity Date Captured [...] Future Order: Radiology Order Ultrasound OB Follow-up (37450) Ordered Future Order: Radiology Order Complete OB Ultrasound > 14 Ordered Weeks ([id number]) Date Type Problem Goal Intervention Status Start [...]
--- OUTSIDE RECORDS SUMMARY | 2017-06-06 20:42 | External Medical Summary | Continuity of Care Document ---
:1985 Author Organization [facility] Address [address] [place], [place] [phone] Phone Care Team Providers Name Role Phone [...] Members Associates Topher Encounter Vazquez Referring In Womens for suprvs Elizabeth. Provider: Health PA, of normal [address], , Medical Varun B, [place], [place], second Center 720 [id number], [email or web address] [facility] [place] weeks 120, Center, tel:+21 gestation of Topher [place], [address] [place], [address]. [id number] tel:+ , [place]. [id number] tel: [phone] Katelin [place]o Encounter Vazquez Referring In Womens for suprvs Elizabeth. Provider: Health PA, of normal [address], , Medical Varun B, [place], second Center 720 [id number], [email or web address] Dr [facility] [place] weeks 120, Center, tel:[phone] gestation of Topher [place], [address] [place], [address]. [id number] tel: , [place]. [id number] tel: [phone] Katelin [place]o Encounter Vazquez Referring In Womens Ultrasound for vs Elizabeth. Provider: Health PA, of normal [address], , Medical Varun B, [place], second Center 720 [id number], [facility] [place] weeks 120, Center, tel:[phone] gestation of Topher [place], [address] [place], [address]. [id number] tel: , [place]. [id number] tel: [phone] Katelin Obando Encounter Vazquez Referring In Womens for suprvsn Elizabeth. Provider: Health PA, of normal [address], , Medical Varun B, [place], second Center 720 [id number], [email or web address] [facility] [place] weeks 120, Center, tel:[phone] gestation of Topher [place], [address] [place], [address]. [id number] tel:+ , [place]. [id number] tel: [phone] Katelin [place]o Encounter Vazquez Referring In Womens for suprvs Elizabeth. Provider: Health PA, of normal [address], , [facility], [place], first Center 720 [id number], [email or web address] , [facility] weeks 120, Center, tel:21 gestation of Topher [place], [address] [place], [address]. [id number] tel: , [place]. [id number] tel: [phone] Associates Topher Vazquez Referring In Womens Follow-Up, -2014 Elizabeth. Provider: Roel DAMICO, Routine 700 [address], Medical Varun B, [place], [place], Center 720 [id number], , [facility] 120, Center, tel: Topher [place], [address] [place], [address]. [id number] tel: , [place]. [id number] tel: [phone] Katelin [place] Vazquez Referring In Womens -2014 Elizabeth. Provider: Roel DAMICO, 700 Elizabeth [address], Medical Vazquez , [place], [place] 700 [id number], Dr [facility] 120, [place] tel: [place] [address], [address] [place], [place], [id number] [place], , [place]. [id number]. tel: tel: [phone] Katelin [place] Vazquez In Womens -2014 Elizabeth. Health MARGAUX, 700 [address], [place], [place], [place] [id number], Dr [facility] 120, tel: Topher[address], [id number] , [place]. tel: [phone] Katelin May- Allen In Womens -2012 [place]. Health MARGAUX, 700 [address], [place], [place], [place] [id number], , [facility] 120, tel: Topher[address], [id number] , [place]. tel: [phone] Family History Family Member Diagnosis Age At [...] name Insurance type Covered libertarian ID Authorization(s) [facility] [id number] [facility] [place] [id number] [place] [id number] Social History Type Description Quantity Date Captured [...] Of Care Date Type Action Status Appointment Winston Loza BOOKED Future Order: Radiology Order Complete OB Ultrasound > 14 Ordered Weeks ([id number]) Date Type Problem Goal Intervention Status Start [...]
--- OUTSIDE RECORDS SUMMARY | 2017-06-06 20:42 | External Medical Summary | Continuity of Care Document ---
:1985 Author Organization [facility] Address [address] [place], [place] [phone] Phone Care Team Providers Name Role Phone Yrn Bond MD Unavailable Unavailable Allergies, Adverse Reactions, Alerts Substance Reaction Severity Status amoxicillin Rash Unknown Active Medications Medication Instructions Dosage Effective Dates Status Comments (start - stop) FOLIC ACID - Active (unknown strength) Generic Order - Active (unknown strength) Enzymatic - Active Digestant tablet Vitamin take 1 tablet by Not Available [...] Procedure Date OB Visit No Charge - ACTIVITIES VOLUNTEER Results Test Name Date and Time Measure Units Reference Range Abnormal Flag Comments Unknown Advance Directives Directive Yes / No Effective Date File Name Unknown Encounters Encounter Practice Location Reason(s) Diagnoses Date Provider Care Team Description For Visit Members [facility] Topher Encounter Vazquez Referring In [facility] for suprvsn -2016 Elizabeth. Provider: Health PA, of normal [address], , Medical Varun B, [place], second Center 720 [id number], [email or web address] [facility] [place] weeks 120, Center, tel: gestation of Top[place], [address] [place], [id number] tel:+ , [place]. [id number] tel: [phone] Katelin [place] Encounter Vazquez Referring In Womens Ultrasound for suprvsn -2016 Elizabeth. Provider: Health PA, of normal [address], , Medical Varun B, [place], second Center 720 [id number], [facility] [place] weeks 120, Center, tel: gestation of Top[place], [address] [place], [id number]. [id number] tel:+ , [place]. [id number] tel: [phone] Katelin [place] Encounter Vazquez Referring In Womens for suprvsn -2016 Elizabeth. Provider: Health PA, of normal [address], , Medical Varun B, [place], second Center [id number], [email or web address] [address] [facility] [place] weeks 120, Center, tel: gestation of Topher [place], [address] [place], [id number]. [id number] tel:+ , [place]. [id number] tel: [phone] Katelin [place] Encounter Vazquez Referring In Womens for suprvsn -2016 Elizabeth. Provider: Health PA, of normal [address], , Medical Varun B, [place], first Center [id number], [email or web address] [facility] [place] weeks 120, Center, tel: gestation of [place]her [place], [address] [place], [id number]. [id number] tel:+ , [place]. [id number] tel: [phone] Katelin [place] Vazquez Referring In Womens Follow-Up, -2014 Elizabeth. Provider: Health PA, Routine [address], Medical Varun B, [place], Center 720 [id number], , [facility] 120, Center, tel:+21 Topher [place], [address] [place], [id number]. [id number] tel: , . [id number] tel: [phone] Katelin [place] Vazquez Referring In Womens Elizabeth. Provider: Health MARGAUX 700 Elizabeth [address], Medical Vazquez [place], [place], [place] 700 [id number], , [facility] 120, [place] [address] tel:21 Topher [facility] 120, [address] [place], [place], [id number] [place], , [place]. [id number]. tel: tel: [phone] Associates Topher Vazquez In Women Elizabeth. Health PA, 700 [address], [place], [place], [place] [id number], , [facility] 120, tel:21 Topher [address], [id number] , [place]. tel: [phone] Katelin Alejandro In Women [place]. Health PA, [address], [place], [place], [place] [id number], , [facility] 120, tel:21 [place] [address] [place], [id number] , [place]. tel: [phone] Family History Family Member Diagnosis Age At [...] Record Payers Payer name Insurance type Covered republican ID Authorization(s) [facility] [id number] [facility] [id number] [facility] [id number] Social History Type Description Quantity Date Captured Alcohol Use Details No Caffeine Use Details Unknown Tobacco Use Status Unknown Smoking Status Never smoker Vital Signs Date / Height Weight BMI Pulse Blood Temperature Respiratory Body Head BMI Time: Rate Pressure Rate Surface Circumference percentile Area 142.90 27.0 104/61 -2017 lbs 0 mm[Hg] 9:34 kg/m AM eter (2) Chief Complaint And Reason For Visit Unknown Chief Complaint And Reason For Visit Reason For Referral Reason For Referral Unknown Plan Of Care Date Type Action Status Appointment Jojo Loza BOOKED Future Order: Radiology Order Complete OB Ultrasound > 14 Ordered Weeks ([id number]) Date Type Problem Goal Intervention Status Start [...]
[2017-06-06] MEDS ORDERED: OXYTOCIN DRIP 30 UNIT/500 ML ML IV SCH (21:49)
[2017-06-07] MEDS ORDERED: HYDROCORTISONE 2.5% CREAM 30gm RECTALLY PRN ×2 (01:51→03:42)
[2017-06-07] MEDS ORDERED: CALCIUM CARBONATE Chewable 500mg TABLET PO PRN ×2 (01:51→03:42)
[2017-06-07] MEDS ORDERED: HYDROCODONE/APAP 5mg/325mg TABLET PO PRN (01:51)
[2017-06-07] MEDS ORDERED: DiphenhydrAMINE 25 MG CAPSULE PO PRN ×2 (01:51→03:42)
[2017-06-07] MEDS ORDERED: ACETAMINOPHEN 500 MG TABLET PO PRN ×2 (01:51→03:42)
[2017-06-07] MEDS ORDERED: IBUPROFEN 800 MG TABLET PO PRN ×2 (01:51→03:42)
[2017-06-07] MEDS ORDERED: MAG-AL + SIM ORAL LIQUID 30ml PO PRN ×2 (01:51→03:42)
[2017-06-07] MEDS ORDERED: BENZOCAINE 20% SPRAY 0.5 ML MM ONE (01:51)
[2017-06-07] MEDS ORDERED: OXYTOCIN DRIP 30 UNIT/500 ML ML IV SCH (01:51)
[2017-06-07 03:34] VITALS: RESP 16
[2017-06-07] MEDS ORDERED: DOCUSATE CALCIUM 240 MG CAPSULE PO SCH ×2 (09:00)
--- NOTE | 2017-06-07 10:16 | Labor and Delivery Note ---
DATE OF DELIVERY: 06/06/2017 DIAGNOSES 1. 31-year-old white female, G3, P1 at 40.5 weeks gestational age. 2. Spontaneous labor. 3. Spontaneous rupture of membranes. 4. Spontaneous vaginal delivery. 5. Nuchal cord x 1 - delivered through. 6. Female , Apgars (Aleksandra) 3170gm. 7. atony. DESCRIPTION This is a patient of Dr. Shukla who called Unit reporting she was in labor and was coming in. She arrived and was immediately taken to room 1. The charge nurse checked her cervix and she was 9 cm dilated with a bulging bag. I was in-house already and in the room at the time that the charge nurse check. We placed the patient on the heart tone monitors after the check and started an IV. We opened up the room to prepare for a delivery. Membranes spontaneously ruptured shortly thereafter and she had a strong urge to push. Spontaneous rupture of membranes occurred at 2 hours and spontaneous vaginal delivery occurred at 2043 hours. The was bulb suctioned after delivery of the head and then again after delivery of the body. The was delivered from the OA position. There was a tight nuchal cord but I was able to spread it apart enough to deliver through it and then I allowed the cord to drain for two minutes until it was completely collapsed prior to doubly clamping it. The infant's father cut the cord. The was initially placed on the mother's abdomen. The placenta delivered spontaneously a few minutes later and was intact. Perineum was examined and there were a couple of slight stretch corrales but nothing bleeding so no stitches were needed. Mother was found to be GBS negative. Maternal blood type A+ and rubella immune. Pitocin was started after delivery of the placenta. : About 10:15 I as notified by the nurse that she felt the bleeding was slightly heavier than typical so I went in and did a digital sweep of the uterine cavity and got a couple hundred mL of clots out. The uterus clamped down well. Will go ahead and give a dose of Methergine in addition to the IV Pitocin. I will add a blood count for the morning. Questions were answered to the patient and her 's satisfaction. KIMBERLY
--- NOTE | 2017-06-07 12:23 | Progress Note ---
OB PP Progress Note Free Text - Date Date: 06/07/17 - Progress Note Progress Note: vss af desires dc today instructions reviewed wants to take placenta with her.
[2017-06-07 13:40] VITALS: O2SAT 99
[2017-06-07 15:47] VITALS: BMI 26.6
[2017-06-07 21:43] VITALS: BP 109/61; PULSE 71; TEMP 98.3
== END 2017-06-07 22:34 | disposition home or self-care (01) | DRG 774 ==
LOC: MC 06-06 20:25
PROVIDERS: ADMIT Obstetrics & Gynecology; ATTEND Obstetrics & Gynecology